=== PATIENT | female | born 1935 | race Caucasian/White ===

== ENCOUNTER 2017-02-10 07:57 | Day surgery (SDC) | payer MEDICARE ==
--- NOTE | 2017-02-10 08:19 | HP ---
HISTORY AND PHYSICAL: DATE OF ADMISSION: 02/10/17 [facility] CHIEF COMPLAINT: This is a 81-year-old female who was referred to us by Olive Mena to evaluate a possible right breast mass which is the chief complaint. HISTORY OF PRESENT ILLNESS: This is a 81-year-old female who was seen by Olive Mena on 01/23/17 because the patient noticed on her self-examination, a new lump or nodule in the upper quadrant of her right breast. Her prior history included routine breast exams on an annual basis and her last mammogram being in 2014, which was read as normal. The patient actually was seen in November for a breast exam. At that time, her exam was unremarkable but approximately 2-1/2 weeks prior to this appointment, which is 02/09/17, in November she had a negative exam and 3 weeks prior is when she noticed this change in her right breast and presented to Olive Mena. She confirmed a dominant area in the right breast in the 12 o'clock region and then went on to order a mammogram and ultrasound. The mammogram revealed a new 8 mm density in this region with calcifications, which was thought to be suspicious. They went on to do an ultrasound. This revealed a lobulated nodule in her right breast in the 12 o'clock region. This was felt to be hypo--echogenic mass, measured 10 x 14 x 12 mm. This was felt to be suspicious. For these reasons, she was then referred here to Dr. Milian's office for evaluation. Other significant history is her mother had breast cancer at the age of 59, had a mastectomy and then lived to the age of late 80's and from heart disease. The patient's other history is significant for having three full-term pregnancies. In 2011, she was found to have a cyst on one of her ovaries and underwent bilateral oophorectomy in 2011. After that date, she did use estrogen creams intermittently. She has not used any estrogen for the last 8 months. On our evaluation today on 02/09/17, the patient was found to have a thickening in the 12 o'clock region and a possible slight dimpling in that area. There is no tenderness associated with this. The area of thickening or dominant area is approximately 1 cm. The axilla on the right is found to be negative. The left breast is unremarkable, though left axilla is found to be negative. Ultrasound in our office was done. We measured this bilobular hypoechogenic mass to be 1 cm x 1.2 cm in height in one dimension, it could be as wide from 1 cm to 1.6 cm. There are no other findings on ultrasound. The patient was examined by Dr. Milian as well and her daughter, who is a nurse was present also for the appointment. It is our recommendation this is a solid mass and because of her age and some of the findings, it is somewhat suspicious, but this is not clear until a formal biopsy is obtained, so it is our recommendation to proceed with excisional biopsy of this right breast mass with the procedure to be done at [facility] using local MAC for sedation. There is some depth to it, so it was felt that she would do better if this was performed at [facility] for the comfort level and the anxiety. At this time the patient is scheduled for surgery for excisional biopsy of a suspicious right breast mass to be done by Dr. Milian. PAST MEDICAL HISTORY: Significant for hypertension, has a history of back pain. She had some bladder prolapse. PAST SURGICAL HISTORY: She had cryotherapy 16 years ago, had tonsillectomies and adenoidectomies as a child. Had the wisdom teeth extracted. She had oophorectomy in May 2012 for a benign right ovarian cyst. She had oral surgery , cataract surgery in [address] Hurd, assistive devices, she wears glasses and she also wears dentures. MEDICATIONS: She takes: 1. Ramipril 10 mg daily for her blood pressure. 2. She takes naltrexone 50 mg daily. She is not on estrogen, has been off that for the last 8 months. She does not take any aspirin products. ALLERGIES: She has a reaction to SULFA, where she has leg cramps, so she does not take that. Her primary physician is Dr. Cabrera. FAMILY HISTORY: Positive for her mother having breast cancer at the age of 59, underwent a mastectomy and then lived to an age of late 80s and is from heart disease. There is no other family history of breast cancer. SOCIAL HISTORY: She is . She has 3 children, 2 boys and a daughter, and her daughter is a nurse who is present with her today. She is an active woman. 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 She is a nonsmoker, previously did smoke 1 pack per day for 30 years. Rarely drinks alcohol. Drinks 4 cups of coffee a day. Exercises regularly. PHYSICAL EXAMINATION GENERAL: She is a 81-year-old female, looks younger than her stated age, appears in no distress. Alert and oriented. VITAL SIGNS: Today, she is 5 feet 5-/12 inches, weighs 163 pounds. Her blood pressure is 170/85. She is a little bit anxious. BMI is 26.7. Her pulse is 87 and regular. HEENT: Within normal limits. NECK: Supple. There is no JVD or carotid bruits. Her thyroid is felt to be normal. LUNGS: Clear throughout. There are no wheezes or rhonchi. HEART: Regular rhythm without a murmur heard. BREASTS EXAM: As mentioned previously, the right breast has a dominant thickening and a slight dimpling in the 12 o'clock region. This area of concern measures approximately 1 cm in the 12 o'clock region. The remaining breast exam on the right is unremarkable. The axilla on the right is negative. Left breast revealed normal exam. The axilla on the left is negative. ABDOMEN: Soft and nontender. There are no hernias noted. There are no masses or tenderness on exam. EXTREMITIES: Reveal full range of motion without limitation. NEUROLOGIC: She is nonfocal and grossly intact. IMPRESSION: Right breast mass in a 81-year-old female which was found approximately 3 weeks ago on her self-exam, confirmed as a dominant nodule on mammogram, as well as ultrasound. It is felt to be suspicious. PLAN: We would like to proceed with excisional biopsy with local MAC, so she has IV sedation to be done at [facility] tomorrow if possible on 02/10/17, so we can obtain tissue diagnosis for this right breast mass. JASON CARABALLO [id number]/[facility] #: [id number] MTDD
[2017-02-10] MEDS ORDERED: Famotidine IV* 10 MG/ML 2 ML (20 mg) ONE (08:20)
[2017-02-10] MEDS ORDERED: KETAMINE HCL* 50 MG/ML 10 ML VIAL ONE (08:28)
[2017-02-10] MEDS ORDERED: Midazolam* 1 MG/ML 5 ML VIAL (5 MG) ONE (08:28)
[2017-02-10] MEDS ORDERED: fentaNYL* 50 MCG/ML 2 ML VIAL (100 MCG VIAL) ONE (08:28)
[2017-02-10] MEDS ORDERED: HYDROmorphone INJ* 1 MG/ML CARPUJECT SYRINGE IV PRN (08:54)
[2017-02-10] MEDS ORDERED: oxyCODONE TAB* 5 MG TAB PO PRN (08:54)
[2017-02-10] MEDS ORDERED: DiMENhydriNATE IV* 50 MG/ML VIAL IV PUSH PRN (08:54)
[2017-02-10] MEDS ORDERED: Acetaminophen TAB* 325 MG PO PRN (08:54)
[2017-02-10] MEDS ORDERED: Bupivacaine 0.5% W/EPI SDV* 30 ML VIAL ONE (09:06)
[2017-02-10] MEDS ORDERED: Lidocaine 1% INJ* 10 MG/ML 30 ML SDV ONE (09:06)
[2017-02-10] MEDS ORDERED: Ketorolac INJ* 30 MG/ML 1 ML VIAL ONE (10:18)
[2017-02-10] MEDS ORDERED: Propofol* 10 MG/ML 20 ML BTL IV PUSH ONE (10:18)
[2017-02-10] MEDS ORDERED: Lidocaine 2% PF * 5 ML VIAL ONE (10:18)
[2017-02-10] MEDS ORDERED: Ondansetron INJ* 2 MG/ML VIAL ONE (10:18)
[2017-02-10 10:41] VITALS: BP 129/67
--- NOTE | 2017-02-11 00:26 | OP ---
DATE OF OPERATION: 02/10/[address] [facility] DATE OF : 39 SURGEON: Wisam Milian MD ARMORED CAR MESSENGER: Zohreh Waldrop NP ANESTHESIOLOGIST: Deepti Verdin MD ANESTHESIA: Local plus MAC. PRE-OP DIAGNOSIS: Right breast cancer. POST-OP DIAGNOSIS: Right breast cancer. OPERATIVE PROCEDURE: Excisional breast biopsy, right breast mass. ESTIMATED BLOOD LOSS: Approximately 20 cc. SPECIMEN: Breast mass with true margins. INDICATIONS: The patient is a 81-year-old female who examining herself found a palpable mass. For this reason, she came for an evaluation. On ultrasound, there was a 1.6 cm mass located at 12 o'clock of the right breast, highly suspicious for malignancy with skin dimpling. For this reason, the patient was scheduled for an excisional breast biopsy after discussing different options with the patient. DESCRIPTION OF PROCEDURE: The patient was taken to the procedure room. She underwent ultrasound marking of the breast mass. She was then prepped and draped in the usual sterile fashion and under sedation. Lidocaine 1% was used to infiltrate in the surrounding area of the periphery of the right breast at 12 o'clock. After a good level of anesthesia was obtained, a transverse incision was performed. This incision was carried down through the skin and subcutaneous tissue. Bleeders were controlled by electrocoagulation. After this was done, the mass was palpated, identified and held with Allis clamps and by using sharp dissection, the mass was removed entirely. At this point, the initial mass was then oriented and marked in its margins with sutures, short, superior, long lateral and then two blue sutures oriented towards the pectoralis muscle. After this was completed, we then proceeded to remove true margins from the superior, inferior, medial, and lateral margins and sent as a separate specimen. After this was done, hemostasis was accomplished and no bleeding was noted. More Marcaine was infiltrated in the surrounding area and after this was done, the incision was closed, first the subcutaneous tissue with 4-0 Vicryl and the skin was closed with a subcuticular 4-0 Prolene and Steri-Strips. A light pressure dressing was applied to the right breast. The patient tolerated the procedure well. She was then taken in good condition to the recovery room. [id number]/[facility] #: [id number] [facility]
== END 2017-02-10 11:05 | disposition home or self-care (01) ==
LOC: OREAST 07:57
PROVIDERS: ATTEND Surgery
PROC: 0HBT0ZX Excision of Right Breast, Open Approach, Diagnostic (ICD-10-PCS; principal; 2017-02-10 09:15)
DX: C50.911 Malignant neoplasm of unspecified site of right female breast (principal); I10 Essential (primary) hypertension; Z87.891 Personal history of nicotine dependence
CPT/HCPCS: 88307; 88341; 88342; J1885; J2250; J2405; J2704; J3010

== ENCOUNTER → 2017-02-28 06:36 | Day surgery (SDC) | payer MEDICARE ==
--- NOTE | 2017-02-20 08:32 | HP ---
HISTORY AND PHYSICAL: ADDENDUM TO PREVIOUS HISTORY DATED 02/10/17 DATE OF ADMISSION: 02/28/17 - [facility] The patient recently had [facility] on . The patient underwent a lumpectomy excision of breast biopsy in her right breast. 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 The grade of the tumor is 3/3. The margin are clear of tumor. 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 All of the results were discussed with the patient by Dr. Milian. Options for surgery were discussed with the patient as well. Those options included the lumpectomy that she has had presently followed by sentinel node biopsy and this option would most probably include radiation therapy for 6 weeks to follow. The other surgical option that was discussed with the patient is to do a mastectomy on the right breast as well as a sentinel node biopsy and this would include no recommendations for radiation. The patient will be 82 years old this June 2017. At this time, she wishes to have no further surgery with the right breast to agree with the treatment of the lumpectomy, which was done on 02/10/17 followed by sentinel node biopsy and radiation. At this time to further stage this tumor, we would like to schedule the patient for a sentinel node biopsy of the right axilla. If this sentinel node biopsy is positive, the patient knows that a formal axillary node dissection will be required of the right breast. At this time, we would like to schedule the surgery at [facility] for this patient with invasive ductal carcinoma of the right breast status post lumpectomy. Surgery will be done by Dr. Milian at [facility]. SHAUNA GUTIERREZ, JASON [id number]/[facility] #: [id number] [facility]
[~2017-02-28 06:36] MED LIST: Buffered Lidocaine 1% SYRIN* 3 ML/SYR SYRINGE INTRADERM ONE; Bupivacaine 0.5% W/EPI SDV* 30 ML VIAL ONE; Dexamethasone IV* 4 MG/ML 1 ML (4 MG) ONE; Famotidine IV* 10 MG/ML 2 ML (20 mg) IV ONE; Famotidine IV* 10 MG/ML 2 ML (20 mg) ONE; KETAMINE HCL* 50 MG/ML 10 ML VIAL ONE; Labetalol IV* 5 MG/ML 20 ML VIAL ONE; Lidocaine 1% INJ* 10 MG/ML 30 ML SDV ONE; Lidocaine 2% PF* 10 ML AMP ONE; Lidocaine 2% PF* 5 ML VIAL ONE; Lidocaine 2.5%/Prilocain 2.5%* 5 GM TUBE ONE; Midazolam* 1 MG/ML 5 ML VIAL (5 MG) ONE; Morphine INJ* 2 MG/ML 1 ML SYRINGE IV PRN; Ondansetron INJ* 2 MG/ML VIAL ONE; PROCHLORPERAZINE INJ 5 MG/ML 2 ML VIAL IV PRN; Propofol* 10 MG/ML 20 ML BTL IV PUSH ONE; ceFAZolin 2 GM PREMIX(*) 2 GM/50 ML BAG IVPB ONE; fentaNYL* 50 MCG/ML 2 ML VIAL (100 MCG VIAL) IV PRN; fentaNYL* 50 MCG/ML 2 ML VIAL (100 MCG VIAL) ONE; hydrALAZINE IV* 20 MG/ML VIAL ONE; oxyCODONE/Acetamin 5/325 MG* TAB ONE
--- NOTE | 2017-02-28 10:40 | RAD ---
INDICATION: Right breast carcinoma. Excision 2 weeks ago COMPARISON: Mammogram and sonogram January 26, 2017 TECHNIQUE: Informed consent was obtained. A routine timeout procedure was called. The right breast was prepped in usual fashion and a total of 0.31 mCi technetium 99m sulfur colloid was injected intradermally in the periareolar region in 4 divided doses. Imaging the chest was then performed. FINDINGS: The sentinel node was promptly identified and marked on the skin surface. The node was in the axilla. Images were sent with the patient to the surgical holding area. IMPRESSION: SENTINEL NODE IMAGING WAS PERFORMED.
[2017-02-28] MEDS: oxyCODONE/Acetamin 5/325 MG* TAB PO PRN ×2 (13:57→14:41)
[2017-02-28 15:12] VITALS: BP 145/72
--- NOTE | 2017-03-01 02:56 | OP ---
DATE OF OPERATION: 02/28/17 [facility] DATE OF : 39 SURGEON: Wisam Milian MD ANESTHESIOLOGIST: Zhang Hadley MD ANESTHESIA: Local plus MAC. PRE-OP DIAGNOSIS: Invasive adenocarcinoma of the right breast. POST-OP DIAGNOSIS: Invasive adenocarcinoma of the right breast. OPERATIVE PROCEDURE: Right axillary sentinel lymph node biopsy. ESTIMATED BLOOD LOSS: Less than 20 cc. SPECIMEN: Merino lymph node. DESCRIPTION OF PROCEDURE: The patient had undergone nuclear medicine local excision of sentinel lymph node and the sentinel lymph node area was marked prior to this surgery. The patient was then taken to the operating room. She was placed in the supine position. She received preoperative antibiotics. She was prepped and draped in the usual sterile fashion and after proper identification of the patient and surgical site and time-out, the marked area by the x-ray department was then infiltrated with lidocaine 1%. It was also confirmed using the navigator, the area that was previously marked. After this was done, a transverse incision at the base of the axilla was done. The incision was carried down through skin and subcutaneous tissue. Dissection was carried around until the lymph node was identified. It was a small to hard lymph node with a high Frank count. This was dissected off, clipped the proximally and distally with the fatty tissue in the surrounding area and removed outside the axillary cavity, the Montross count was over 20 and the area where it was located did not increase in activity. It was felt that this was successfully located and the area was checked for other lymph nodes visually and by palpation. No other lymph nodes were noted. The area was then checked for hemostasis. Minor oozing was controlled with the electrocautery and after this was done, the incision was closed by closing the subcutaneous tissue with 4 -0 Vicryl and the skin with subcuticular 4-0 Prolene suture and Steri-Strips. A light dressing was applied to the axillary incision. The patient tolerated the procedure well and she was taken in good conditions to recovery room. [id number]/[facility] #: [id number] [facility]
== END | disposition home or self-care (01) ==
LOC: SDS 06:36
PROVIDERS: ATTEND Surgery
DX: C50.911 Malignant neoplasm of unspecified site of right female breast (principal); I10 Essential (primary) hypertension
CPT/HCPCS: 78195; 88307; 88342; A9270-GY; A9541; C1776; J0360; J0690; J1100; J2001; J2250; J2405; J2704; J3010

== ENCOUNTER 2018-10-18 07:07 | Inpatient (IN) | payer MEDICARE ==
--- NOTE | 2018-10-08 19:30 | HP ---
HISTORY AND PHYSICAL: DATE OF ADMISSION/SURGERY: 10/18/18 DATE OF OFFICE VISIT: 10/08/18 PRIMARY CARE PHYSICIAN: Dr. Cabrera. SURGEON: Kaela Foss MD * (DICTATED BY JASON PAIGE) PROCEDURE: Left total knee arthroplasty. CHIEF COMPLAINT: Left knee pain. HISTORY OF PRESENT ILLNESS: Ms. Sigala is an 83-year-old female with end- stage osteoarthritis of the left knee. She has failed conservative treatment and elected to proceed with surgery. PAST MEDICAL HISTORY: Hypertension and breast cancer. PAST SURGICAL HISTORY: Lumpectomy, cataract removal, and oophorectomy. CURRENT MEDICATIONS: Ramipril 10 mg daily. ALLERGIES: None. FAMILY HISTORY: Cancer and coronary artery disease. SOCIAL HISTORY: She is an 83-year-old female. She lives alone. She does not smoke or use drugs. Uses occasional alcohol. REVIEW OF SYSTEMS: A complete 14-point review of systems was reviewed with the patient. It was all negative or noncontributory. She denies history of DVT, PE , hepatitis, HIV, or anesthesia problems. PHYSICAL EXAMINATION GENERAL: She is well developed, well nourished, in no acute distress. VITAL SIGNS: She stands 5 feet 5 inches tall, weighs 158 pounds. Her blood pressure is 138/82 and heart rate is 80. HEENT: Normocephalic, atraumatic. NECK: Supple. No palpable lymph nodes. PULMONARY: The lungs are clear to auscultation bilaterally. CARDIO: Regular rate and rhythm. Strong S1, S2. ABDOMEN: Soft, nontender, and nondistended. NEUROLOGICAL: She is alert and oriented x3. MUSCULOSKELETAL: Left lower extremity: The skin is intact. There are no open wounds or abrasions. There is a moderate joint effusion. She has some tenderness over the medial and lateral joint line. Range of motion is 5 to 125 degrees of flexion. There is a 12-degree valgus deformity of the knee. She has a 2+ dorsalis pedis pulse and intact sensation. Her lower extremity muscle group strengths are intact at 5/5. ASSESSMENT AND PLAN: Ms. Sigala is an 83-year-old female with end-stage osteoarthritis of the left knee. She has failed conservative treatment and elected to proceed with a left total knee arthroplasty. The surgery is scheduled for 10/18/[address] Foss discussed the risks and benefits of the surgery at today's visit and all of her questions were answered. She will follow up with Dr. Foss 2 weeks after the surgery. JASON PAIGE [id number]/[facility] #: [id number] ADITI
[~2018-10-18 07:07] MED LIST changes: +Buffered Lidocaine 0.9% SYRIN* 5 ML/SYR SYRINGE INTRADERM ONE; -Buffered Lidocaine 1% SYRIN* 3 ML/SYR SYRINGE INTRADERM ONE; -Bupivacaine 0.5% W/EPI SDV* 30 ML VIAL ONE; +Dexamethasone IV* 4 MG/ML 1 ML (4 MG) IV SLOW PU ONE; -Dexamethasone IV* 4 MG/ML 1 ML (4 MG) ONE; -Famotidine IV* 10 MG/ML 2 ML (20 mg) ONE; +Gabapentin CAP(*) 300 MG PO ONE; -KETAMINE HCL* 50 MG/ML 10 ML VIAL ONE; -Labetalol IV* 5 MG/ML 20 ML VIAL ONE; -Lidocaine 1% INJ* 10 MG/ML 30 ML SDV ONE; -Lidocaine 2% PF* 10 ML AMP ONE; -Lidocaine 2% PF* 5 ML VIAL ONE; -Lidocaine 2.5%/Prilocain 2.5%* 5 GM TUBE ONE; -Midazolam* 1 MG/ML 5 ML VIAL (5 MG) ONE; -Morphine INJ* 2 MG/ML 1 ML SYRINGE IV PRN; -Ondansetron INJ* 2 MG/ML VIAL ONE; -PROCHLORPERAZINE INJ 5 MG/ML 2 ML VIAL IV PRN; -Propofol* 10 MG/ML 20 ML BTL IV PUSH ONE; -ceFAZolin 2 GM PREMIX(*) 2 GM/50 ML BAG IVPB ONE; +celeCOXIB CAP* 100 MG PO ONE; +celeCOXIB CAP* 200 MG PO ONE; -fentaNYL* 50 MCG/ML 2 ML VIAL (100 MCG VIAL) IV PRN; -fentaNYL* 50 MCG/ML 2 ML VIAL (100 MCG VIAL) ONE; -hydrALAZINE IV* 20 MG/ML VIAL ONE; -oxyCODONE/Acetamin 5/325 MG* TAB ONE
--- OUTSIDE RECORDS SUMMARY | 2018-10-18 07:11 | XMS REPORT ---
:1935 External Reference #:[id number] Author Organization [employer] Address [address] [place] [address] [place] [address] Phone [phone] Care Team Providers Name Role Phone Brad Cabrera MD Primary Care Physician Unavailable Payers Type Date Identification Numbers Payment Provider Subscriber Health Maintenance Policy Number: [facility] Precious Sigala [facility] (O) [id number] Ppo/Epo PayID: [id number] [address] [place] [address] Problems Date Description Provider Status Onset: 12/28/2016 Localized, primary osteoarthritis Kaela Foss M.D. Active Onset: 04/30/2018 Acquired genu valgum Kaela Foss M.D. 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 ETOH Use Drinks 2 Alcoholic Beverages Per Week Smoking Patient is a former smoker Exercise Type/Frequency Exercises regularly Allergies, Adverse Reactions, Alerts Date Description Reaction Status Severity Comments 07/26/2017 NKDA active Medications Medication Date Status Form Strength Qnty SIG Indications Ordering Provider Ramipril Active Capsules 10mg 1 by Unknown 00 mouth every day Naltrexone HCL Hx Tablets 50mg Unknown - 03/23/20 17 Medications Administered in Office Medication Date Status Form Strength Qnty SIG Indications Ordering Provider Depomedrol Administered Injection Kaela 40MG Jp Foss M.D. Depomedrol Administered Injection Kaela 40MG Jp Foss M.D. Depomedrol Administered Injection Kaela 40MG 018 Dany Foss Depomedrol Administered Injection Kaela 40MG 017 Dany Foss Depomedrol Administered Injection Kaela 40MG Cr Foss M.D. Depomedrol Administered Injection Kaela 40MG 017 Dany Foss Depomedrol Administered Injection Kaela 40MG Cr Foss M.D. Vital Signs Date Vital Result Comment 08/06/2018 Height 65.5 inches 5'5.50" Weight 166.00 lb Heart Rate 68 /min BP Systolic 126 mmHg BP Diastolic 80 mmHg BMI (Body Mass Index) 27.2 kg/m2 04/30/2018 Height 55.5 inches 4'7.50" Weight 162.00 lb BP Systolic 138 mmHg BP Diastolic 72 mmHg Body Temperature 98.0 F BMI (Body Mass Index) 37.0 kg/m2 01/29/2018 Height 65.5 inches 5'5.50" Weight 163.00 lb BP Systolic 150 mmHg BP Diastolic 78 mmHg Body Temperature 97.4 F Pain Level 3 BMI (Body Mass Index) 26.7 kg/m2 10/25/2017 Height 65.5 inches 5'5.50" Weight 162.00 lb BP Systolic 130 mmHg BP Diastolic 70 mmHg Body Temperature 97.7 F BMI (Body Mass Index) 26.5 kg/m2 07/26/2017 Height 65 inches 5'5" Weight 164.00 lb Heart Rate 90 /min BP Systolic 125 mmHg BP Diastolic 84 mmHg BMI (Body Mass Index) 27.3 kg/m2 03/24/2017 Height 65.5 inches 5'5.50" Weight 164.00 lb Heart Rate 76 /min BP Systolic 124 mmHg BP Diastolic 70 mmHg Respiratory Rate 16 /min BMI (Body Mass Index) 26.9 kg/m2 01/16/2017 Height 65.5 inches 5'5.50" Weight 164.00 lb Heart Rate 76 /min BP Systolic 155 mmHg BP Diastolic 81 mmHg Pain Level 3 BMI (Body Mass Index) 26.9 kg/m2 12/28/2016 Height 65.5 inches 5'5.50" Weight 163.00 lb Heart Rate 75 /min BP Systolic 173 mmHg BP Diastolic 92 mmHg BMI (Body Mass Index) 26.7 kg/m2 Results Description No Information Procedures Date CPT Code Description Status 08/06/2018 Inject/Drain Joint/Bursa Major W/O US Completed 04/30/2018 Inject/Drain Joint/Bursa Major W/O US Completed 02/09/2018 Mammogram Completed 01/29/2018 Inject/Drain Joint/Bursa Major W/O US Completed 11/16/2017 Bone Mineral Density Test Completed 10/25/2017 Inject/Drain Joint/Bursa Major W/O US Completed 07/26/2017 Inject/Drain Joint/Bursa Major W/O US Completed 03/24/2017 Inject/Drain Joint/Bursa Major W/O US Completed 12/28/2016 Inject/Drain Joint/Bursa Major W/O US Completed 06/04/2012 [id number] EKG, Interpretation Only Completed Encounters Type Date Location Provider CPT E/M Dx Office Visit 08/06/2018 [facility] M.D. [id number] M17.12 8:[facility]a [facility] M21.062 M25.562 Office Visit 01/16/2017 8:15a [facility] M.D[facility] [id number] M25.562 [facility] M17.12 Office Visit 12/28/2016 9:30a [facility] M[facility] [id number] M25.562 [facility] M17.12 Plan of Care Future Appointment(s):10/18/2018 1:30 pm - DOMINGA Pittman at [facility]10/18/2018 1:30 pm - JASON Crooks at [facility]10/18/2018 1:30 pm - Kaela Foss M.D. at [facility]10/05/2018 8:30 am - Kaela Foss M.D. at [facility]08/06/2018 - Kaela Foss M.D.M17.12 Unilateral primary osteoarthritis, left kneeFollow up:Follow up: 7-10 days before [id number] Valgus deformity, not elsewhere classified, left kneeM25.562 Pain in left knee
--- OUTSIDE RECORDS SUMMARY | 2018-10-18 07:11 | XMS REPORT | Continuity of Care Document ---
:1935 External Reference #:[id number] Author Name JacquelineFrank alejo Care Team Providers Name Role Phone Brad Cabrera MD Primary Care Physician Unavailable Payers Type Date Identification Numbers Payment Provider Subscriber Policy Number: [id number] [facility] Health Ins Ppo/Epo Precious Sigala PayID: [id number] [address] [place] [address] Advance Directives Description No Information Available Problems Date Description Provider Status Onset: 12/28/2016 Localized, primary osteoarthritis Kaela Foss M.D. Active Onset: 04/30/2018 Acquired genu valgum Kaela Foss M.D. 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 ETOH Use Drinks 2 Alcoholic Beverages Per Week Tobacco Use Start: Unknown End: Patient is a former Unknown smoker Smoking Status Reviewed: 10/08/18 Patient is a former smoker Exercise Exercises regularly Type/Frequency Allergies, Adverse Reactions, Alerts Description No Known Drug Allergies Medications Medication Date Status Form Strength Qnty SIG Indications Ordering Provider Ramipril Active Capsules 10mg 1 by Unknown 00 mouth every day Naltrexone HCL Hx Tablets 50mg Unknown - 03/23/20 17 Medications Administered in Office Medication Date Status Form Strength Qnty SIG Indications Ordering Provider Depomedrol Administered Injection Kaela 40MG 018 Dany Foss Depomedrol Administered Injection Kaela 40MG 018 Dany Foss Depomedrol Administered Injection Kaela 40MG 018 Dany Foss Depomedrol Administered Injection Kaela 40MG 017 Dany Foss Depomedrol Administered Injection Kaela 40MG 017 Dany Foss Depomedrol Administered Injection Kaela 40MG 017 Dany Foss Depomedrol Administered Injection Kaela 40MG 017 Dany Foss Immunizations Description No Information Available Vital Signs Date Vital Result Comment 10/08/2018 7:57am Height 65.5 inches 5'5.50" Weight 158.00 lb Heart Rate 80 /min BP Systolic 138 mmHg BP Diastolic 82 mmHg BMI (Body Mass Index) 25.9 kg/m2 08/06/2018 8:05am Height 65.5 inches 5'5.50" Weight 166.00 lb Heart Rate 68 /min BP Systolic 126 mmHg BP Diastolic 80 mmHg BMI (Body Mass Index) 27.2 kg/m2 04/30/2018 8:00am Height 55.5 inches 4'7.50" Weight 162.00 lb BP Systolic 138 mmHg BP Diastolic 72 mmHg Body Temperature 98.0 F BMI (Body Mass Index) 37.0 kg/m2 01/29/2018 8:05am Height 65.5 inches 5'5.50" Weight 163.00 lb BP Systolic 150 mmHg BP Diastolic 78 mmHg Body Temperature 97.4 F Pain Level 3 BMI (Body Mass Index) 26.7 kg/m2 10/25/2017 7:59am Height 65.5 inches 5'5.50" Weight 162.00 lb BP Systolic 130 mmHg BP Diastolic 70 mmHg Body Temperature 97.7 F BMI (Body Mass Index) 26.5 kg/m2 07/26/2017 7:59am Height 65 inches 5'5" Weight 164.00 lb Heart Rate 90 /min BP Systolic 125 mmHg BP Diastolic 84 mmHg BMI (Body Mass Index) 27.3 kg/m2 03/24/2017 8:02am Height 65.5 inches 5'5.50" Weight 164.00 lb Heart Rate 76 /min BP Systolic 124 mmHg BP Diastolic 70 mmHg Respiratory Rate 16 /min BMI (Body Mass Index) 26.9 kg/m2 01/16/2017 8:15am Height 65.5 inches 5'5.50" Weight 164.00 lb Heart Rate 76 /min BP Systolic 155 mmHg BP Diastolic 81 mmHg Pain Level 3 BMI (Body Mass Index) 26.9 kg/m2 12/28/2016 9:39am Height 65.5 inches 5'5.50" Weight 163.00 lb Heart Rate 75 /min BP Systolic 173 mmHg BP Diastolic 92 mmHg BMI (Body Mass Index) 26.7 kg/m2 Results Description No Information Available Procedures Date Code Description Status 08/06/201837125 Inject/Drain Joint/Bursa Major W/O US Completed 04/30/2018 Inject/Drain Joint/Bursa Major W/O US Completed 02/09/2018 08483946 Mammogram Completed 01/29/2018 Inject/Drain Joint/Bursa Major W/O US Completed 11/16/2017 414006802 Bone Mineral Density Test Completed 10/25/2017 Inject/Drain Joint/Bursa Major W/O US Completed 07/26/2017 Inject/Drain Joint/Bursa Major W/O US Completed 03/24/2017 Inject/Drain Joint/Bursa Major W/O US Completed 12/28/201626423 Inject/Drain Joint/Bursa Major W/O US Completed 06/04/2012 64628 EKG, Interpretation Only Completed Encounters Type Date Location Provider Dx Diagnosis Office Visit 08/06/2018 [facility] K[facility]a Foss, M17.12 Unilateral primary 8:00[facility] osteoarthritis, left knee M21.062 Valgus deformity, not elsewhere classified, left knee M25.562 Pain in left knee Office Visit 01/16/2017 8:15a [facility] Kaela Foss M25.562 Pain in left Of Kyle.Eliceo SarahDCha knee M17.12 Unilateral primary osteoarthritis, left knee Office Visit 12/28/2016 9:30a [facility] Kaela Foss M25.562 Pain in left Of C.M.Perez MChaD. knee M17.12 Unilateral primary osteoarthritis, left knee Plan of Treatment Future Appointment(s):10/31/2018 8:45 am - Kaela Foss M.D. at [facility]10/18/2018 1:30 pm - DOMINGA Pittman at [facility]10/18/2018 1:30 pm - JASON Crooks at [facility]10/18/2018 1:30 pm - Kaela Foss M.D. at [facility]10/08/2018 - Kaela Foss M.D.M21.062 Valgus deformity, not elsewhere classified, left kneeFollow up:Follow up: 2 weeks after ptnaqafY36.562 Pain in left kneeM17.12 Unilateral primary osteoarthritis, left knee
[2018-10-18] MEDS ORDERED: Dexamethasone IV* 4 MG/ML 1 ML (4 MG) ONE (07:52)
[2018-10-18] MEDS ORDERED: Famotidine IV* 10 MG/ML 2 ML (20 mg) ONE (07:53)
[2018-10-18] MEDS ORDERED: Gabapentin CAP(*) 300 MG ONE (07:53)
[2018-10-18] MEDS ORDERED: celeCOXIB CAP* 100 MG ONE (07:53)
[2018-10-18] MEDS ORDERED: ceFAZolin 2 GM PREMIX in ORs 2 GM/50 ML BAG IVPB ONE (07:58)
[2018-10-18] MEDS ORDERED: Midazolam* 1 MG/ML 2 ML VIAL (2 MG) ONE (08:01)
[2018-10-18] MEDS ORDERED: fentaNYL* 50 MCG/ML 2 ML VIAL (100 MCG VIAL) ONE ×3 (08:01→12:14)
[2018-10-18] MEDS ORDERED: Lidocaine 2% PF * 5 ML VIAL ONE (08:19)
[2018-10-18] MEDS ORDERED: ROPIVACAINE 5 MG/ML 30 ML BTL (0.5%) ONE (08:19)
[2018-10-18] MEDS ORDERED: Phenylephrine INJ* 10 MG/ML 1 ML VIAL (10 MG) ONE (09:56)
[2018-10-18] MEDS ORDERED: Tranexamic Acid 1,000 MG in NS 0.9% 50 ML IV ONE (10:00)
[2018-10-18] MEDS ORDERED: Labetalol IV* 5 MG/ML 20 ML VIAL ONE (10:05)
[2018-10-18] MEDS ORDERED: Bupivacaine 0.5% PF 10 ML VIAL INJ ONE (10:21)
[2018-10-18] MEDS ORDERED: DiMENhydriNATE IV* 50 MG/ML VIAL IV PUSH PRN (10:24)
[2018-10-18] MEDS ORDERED: Naloxone* 0.4 MG/ML 1 ML VIAL IV PRN (10:24)
[2018-10-18] MEDS ORDERED: HYDROmorphone INJ1* 1 MG/ML SYRINGE ONE ×2 (10:37→12:29)
[2018-10-18] MEDS ORDERED: oxyCODONE/Acetamin 5/325 MG* TAB PO PRN (11:46)
[2018-10-18] MEDS ORDERED: Magnesium Hydroxide LIQ* 30 ML UDC PO PRN (11:46)
[2018-10-18] MEDS ORDERED: diPHENhydraMINE IV* 50 MG/ML 1 ml VIAL (BENADRYL) IV PRN (11:51)
[2018-10-18] MEDS ORDERED: Ondansetron INJ* 2 MG/ML VIAL IV PRN (11:51)
[2018-10-18] MEDS ORDERED: Polyethylene Glycol 3350* 17 GM PACKET PO PRN (11:51)
[2018-10-18] MEDS ORDERED: Morphine VIAL* 4 MG/ML VIAL (1 ml vial) IV PRN (11:51)
[2018-10-18] MEDS ORDERED: diPHENhydraMINE PO* 25 MG PO PRN (11:51)
[2018-10-18] MEDS ORDERED: Bisacodyl SUPP* 10 MG SUPP PR PRN (11:51)
[2018-10-18] MEDS ORDERED: Acetaminophen IV 1GM/100ML * 1,000 MG/100 ML VIAL IVPB ONE (11:53)
[2018-10-18] MEDS ORDERED: Acetaminophen IV 1GM/100ML * 100 ML ONE (11:58)
[2018-10-18] MEDS ORDERED: Enoxaparin(*) 40 MG/0.4 ML SYR SUBCUT SCH (12:00)
[2018-10-18] MEDS ORDERED: Acetaminophen TAB* 325 MG PO SCH (12:00)
[2018-10-18] MEDS: fentaNYL* 50 MCG/ML 2 ML VIAL (100 MCG VIAL) IV PRN ×4 (12:07→12:36)
[2018-10-18] MEDS: HYDROmorphone INJ1* 1 MG/ML SYRINGE IV PRN ×5 (12:30→14:08)
[2018-10-18] MEDS ORDERED: hydrALAZINE IV* 20 MG/ML VIAL ONE ×2 (13:08→13:54)
[2018-10-18] MEDS: oxyCODONE/Acetamin 5/325 MG* TAB PO PRN ×2 (14:57→19:18)
--- NOTE | 2018-10-18 16:09 | PN ---
Progress Note - Progress Note Date of Service: 10/18/18 Note: Patient seen sitting OOB in chair, feeling well, denies SOB, CP, dizziness s/p LTK this am Pain well controlled +DF left ankle sensation intact distally 2+ pedal pulse
[2018-10-18] MEDS: ceFAZolin 1 GM in Dextrose (*) 1 GM/50 ML BAG IVPB SCH (16:26)
[2018-10-18] MEDS ORDERED: Warfarin TAB(*) 6 MG PO ONE (17:00)
--- NOTE | 2018-10-18 19:21 | CONS ---
CONSULTATION REPORT: DATE OF CONSULT: 10/18/18 TIME OF CONSULTATION: 1:45 p.m. CONSULTING PHYSICIAN: Dr. Foss. REASON FOR CONSULT: Hypertension. CHIEF COMPLAINT: Elective left total knee arthroplasty. HISTORY OF PRESENT ILLNESS: This is an 83-year-old female with history of hypertension and breast cancer, who presented to the hospital today for an elective left TKA with Dr. Foss after failing conservative measures for osteoarthritis. We were consulted for hypertension. Ms. Sigala is seen in PACU with her daughter and she is complaining of some pain in her left knee. She describes the pain as 4/10 and she is noted to be hypertensive at this time. Her current blood pressure recording is 184/93 and I note that Anesthesia has just ordered 5 mg of IV hydralazine for her which the nurse is giving while I am talking with her. Ms. Sigala reports that her blood pressure has been quite well controlled at Dr. Cabrera's office recently and she is only on ramipril 10 mg which she takes in the evening. She has not required any other antihypertensives and she has followed closely with her primary care physician for her hypertension. She does not feel anxious, does not have any other complaints besides the 4/10 knee pain. PAST MEDICAL HISTORY: 1. History of breast cancer, which is currently in remission. She underwent chemotherapy and radiation with Dr. Moore. 2. Hypertension. PAST SURGICAL HISTORY: She had an oophorectomy for benign reasons. There was no malignancy. SOCIAL HISTORY: She does not smoke cigarettes. She drinks 1 alcoholic beverage approximately 3 times per week. Her healthcare proxy is her sister, Monica. REVIEW OF SYSTEMS: As per the HPI. Remainder of 14-point review of systems is negative. PHYSICAL EXAM: Temperature 96.8, heart rate 67, respiratory rate 14, pulse ox 99% on room air, and blood pressure 184/93. General: Alert well-appearing female, in no distress. She is a little sleepy postop, but easily conversational and pleasant. HEENT: Pupils are 1 mm bilaterally. Oral mucosa is dry. No pharyngeal exudates or erythema. Neck: No JVP. No cervical adenopathy. Chest: Regular rate and rhythm. No murmurs. Lungs are clear bilaterally anteriorly. Abdomen is soft, nontender, nondistended. No guarding or rebound. Extremities: The left knee is dressed. Her DP pulses are 2+ bilaterally and sensation is intact. ASSESSMENT AND PLAN: This is an 83-year-old female with history of hypertension ; breast cancer, in remission; and end-stage osteoarthritis, who underwent an elective left TKA today, who we are consulted for hypertension. 1. Hypertension. Her blood pressure is not at goal at this time. She does admit that she did not take her ramipril last night. This in combination with being in pain may be contributing to her blood pressure at this time. Anesthesia has ordered IV hydralazine for her, which may give her some short- term control; however, I am going to give her her ramipril early today. We will allow the hydralazine to kick in and if her blood pressure is still elevated, I will plan to give her her ramipril when she gets to the floor. 2. Remote history of breast cancer. She follows with Dr. Moore and she will continue to get her screening mammogram. 3. Postop day #0 left total knee amputation. She has been started on warfarin for DVT prophylaxis by Orthopedics and her pain management has all been ordered as well. Thank you for allowing us to participate in the care of this patient. We will follow her blood pressure along with you. [id number]/[facility] #: [id number] ADITI
[2018-10-18] MEDS: Ramipril CAP* 10 MG PO SCH (20:36)
[2018-10-18] MEDS: Docusate CAP* 100 MG PO SCH (20:37)
[2018-10-18] MEDS: Magnesium Hydroxide LIQ* 30 ML UDC PO SCH (20:38)
[2018-10-18] MEDS: oxyCODONE TAB* 5 MG TAB PO PRN (22:38)
[2018-10-18] MEDS: Acetaminophen TAB* 325 MG PO SCH (22:39)
[2018-10-18] MEDS: Cyclobenzaprine TAB* 10 MG PO PRN (22:40)
[2018-10-19] MEDS: ceFAZolin 1 GM in Dextrose (*) 1 GM/50 ML BAG IVPB SCH ×2 (00:39→07:34)
[2018-10-19] MEDS: oxyCODONE/Acetamin 5/325 MG* TAB PO PRN ×4 (00:42→20:21)
[2018-10-19 05:35] LABS: Hematocrit 33 % (35-47); Hemoglobin 11.4 g/dl (12.0-16.0); Platelet Count 216 10^3/ul (150-450)
[2018-10-19 05:41] LABS: INR 0.9 (0.77-1.02)
[2018-10-19] MEDS: Acetaminophen TAB* 325 MG PO SCH ×3 (05:45→20:51)
[2018-10-19 05:52] LABS: EGFR Non-African American 67.9 (>60)
[2018-10-19] MEDS: oxyCODONE TAB* 5 MG TAB PO PRN ×4 (07:34→22:33)
--- NOTE | 2018-10-19 08:16 | OP ---
DATE OF OPERATION: 10/18/18 - ROOM #338 DATE OF : 39 SURGEON: Kaela Foss MD CLAY MODELER: JASON Pittman. Ms. Campo did help throughout the procedure with preparation of the leg, wound retraction, manipulation of the knee, and wound closure. ANESTHESIOLOGIST: Dr. Scales. ANESTHESIA: Spinal. PRE-OP DIAGNOSIS: Severe end-stage degenerative osteoarthritis of the left knee joint. POST-OP DIAGNOSIS: Severe end-stage degenerative osteoarthritis of the left knee joint. OPERATIVE PROCEDURE: Left total knee arthroplasty. INDICATIONS: Ms. Sigala is an 83-year-old female with years of increasingly severe left knee pain and valgus deformity with advanced degenerative osteoarthritis. She failed conservative treatment with antiinflammatories, pain medication, intraarticular injections, and physical therapy. Due to continued pain and decreased quality of life, she elected to undergo left total knee arthroplasty. Informed consent was obtained from the patient. She understood the risks of surgery included, but were not limited to, bleeding, infection, damage to nearby structures, continued pain, need for further surgery , intraoperative fracture, nerve palsy, hardware failure or loosening, knee stiffness, loss of motion, stroke, heart attack, blood clot, and . She wished to proceed. COMPLICATIONS: None. TOURNIQUET TIME: 44 minutes. SPECIMENS: Bone and cartilage from the left knee joint sent to Pathology. HARDWARE USED: This is cemented total knee arthroplasty hardware from [employer]. For the cement, 2 packages of Simplex bone cement. For the femur, a size 5 left posterior stabilized Legion Narrow femoral component. For the tibia, a size 3, left tibial blase plate, Sherrill II. For the insert, a 9-mm constrained articular insert, size 3-4, and for the patella, a 32-mm 3 peg all poly patella. INTRAOPERATIVE FINDINGS: Intraoperatively, the patient was noted to have valgus deformity of 10 degrees and flexion contracture of 10 degrees as well. She had some significant laxity of the MCL. She had significant osteopenia noted. Complete loss of cartilage in all 3 compartments but worst in the lateral and patellofemoral compartments. DESCRIPTION OF PROCEDURE: Ms. Sigala was identified in the preanesthesia unit. Her left lower extremity was marked as the correct operative side. Informed consent was signed and placed in the chart. The patient was taken to the operating room and placed under spinal anesthesia. A Soto catheter was placed. Tourniquet was placed on the left thigh. Left lower extremity was prepped and draped in the usual sterile fashion. Preop time-out was made to correctly identify the patient's side and site. Appropriate perioperative antibiotics were given within 1 hour of incision. total tourniquet time for this procedure was 44 minutes. A midline incision was made with a 10 blade and carried down to the extensor mechanism. A new 10 blade was used to make a standard medial parapatellar arthrotomy. The patella was subluxed laterally. Electrocautery was used to subperiosteally elevate soft tissue off the superomedial tibia to the mid sagittal plane. ____ _ MCL was noted to have some laxity but was intact. The knee was flexed up. The anterior horn of the lateral meniscus and ACL were sharply released. A drill was used to enter the distal femur. Intramedullary distal femoral cutting guide was pinned on the distal femur. Oscillating saw was used to make the distal femoral cut. Lateral femoral condylar hypoplasia was noted and accounted for. Next, the external rotation guide was pinned on the distal femur. Distal femur was sized to a size 5. A size 5 multi-cutting jig was pinned on the distal femur. Oscillating saw was used to make the appropriate 4 chamfer cuts. The PCL was completely released and the tibia was subluxed anteriorly. Extramedullary tibial cutting guide was pinned on the proximal tibia. The oscillating saw was used to make the proximal tibial cut perpendicular to the mechanical axis of the tibia. The bone was carefully removed. The knee was brought out into full extension. Spacer block had good fit with the knee in full extension. The medial and lateral ligaments were well balanced. Once again, the MCL chronic laxity noted. Flexion and extension gaps were well balanced. The knee was flexed up. Lamina canvas baster jumpbasting was placed both medially and laterally. Any remaining meniscus was carefully removed using electrocautery. Curved osteotome was used to remove any posterior osteophytes. Tibial tray and drop roxanna were placed and once again confirmed a satisfactory tibial cut and this was confirmed. A left Narrow size 5 femoral trial was impacted on to the distal femur and had excellent fit and stability. The box for the posterior stabilized implant was prepared using a reamer and box cut osteotome. A trial size 3 tibial tray with a 9- mm insert trial was placed and the knee was taken through a range of motion and had full extension to 130 degrees of flexion with satisfactory patellofemoral tracking. The patella was everted. 9 mm of patellar bone and cartilage were carefully removed using an oscillating saw. The patella was sized to a size 32. Three peg holes were drilled through the size 32 guide. 32 patella was placed and the knee was taken through a range of motion. There was satisfactory patellofemoral tracking. All trials were carefully removed. The tibia was subluxed anteriorly and sized to a size 3. Proximal tibia was prepared using a size 3 keel punch. All bony cut surfaces were copiously irrigated with sterile saline and dried. Final implants were cemented into place starting with the tibia, followed by the femur and lastly the patella. 9-mm insert trial was placed and the knee was brought out into full extension. The knee was copiously irrigated with sterile saline. Electrocautery was used to obtain meticulous hemostasis. Once the cement had fully cured, the insert trial was removed. Any excess cement was removed from around the capsule and hardware. Final insert chosen was a 9-mm constrained articular insert size 3-4. This was locked into position on the tibial tray without difficulty. Stability of the insert was checked and rechecked and noted to be stable. The knee was once again copiously irrigated with sterile saline. The extensor mechanism was closed using interrupted #1 Vicryls. The rest of the incision was closed in a layered fashion using 0 and 2-0 Vicryls. Skin was closed using running 3-0 nylon suture. Sterile Xeroform, 4x4s, and Webril were used to cover the incision. Medhat wrap and cold pack were placed over this. The patient' s anesthesia was reversed without difficulty. She was taken to the PACU in stable condition. Intended weightbearing will be weightbearing as tolerated. Intended DVT prophylaxis will be Coumadin with a Lovenox bridge. [id number]/[facility] #: [id number] [facility]
[2018-10-19] MEDS: Magnesium Hydroxide LIQ* 30 ML UDC PO SCH ×2 (09:23→20:21)
[2018-10-19] MEDS: Docusate CAP* 100 MG PO SCH ×2 (09:23→20:21)
--- NOTE | 2018-10-19 09:49 | PN ---
Progress Note - Progress Note Date of Service: 10/19/18 SOAP: Subjective: []Patient seen OOB in chair. Daughter present at bedside. Denies SOB, CP, palpitations. Hoping to go home tomorrow. Objective: [] Vital Signs Temp 98.3 F 10/19/18 07:37 Pulse 83 10/19/18 07:37 Resp 18 10/19/18 09:23 BP 136/61 10/19/18 07:37 Pulse Ox 100 10/19/18 07:37 Intake & Output 10/18/18 10/19/18 10/19/18 18:59 06:59 18:59 Intake Total 800 1640 0 Output Total 425 625 300 Balance 375 1015 -300 Weight 156 lb 3.2 oz Intake: IV Fluids 800 0 LR 800 0 Oral 1640 Output: Urine 0 300 Soto 225 625 Estimated Blood Loss 200 Laboratory Results - last 24 hr 10/19/18 10/19/18 10/19/18 05:28 05:29 05:29 Hgb 11.4 L Hct 33 L Plt Count 216 MPV 8.0 INR (Anticoag Therapy) 0.90 Sodium 133 L Potassium 4.1 Chloride 100 L Carbon Dioxide 29 Anion Gap 4 BUN 14 Creatinine 0.81 Est GFR ( Amer) 82.1 Est GFR (Non-Af Amer) 67.9 BUN/Creatinine Ratio 17.3 Glucose 88 Calcium 8.9 Left knee dressings are dry and intact calf NT and soft +DF/PF left ankle sensation intact distally 2+ DP pulse Assessment: []s/p left total knee arthroplasty POD #1 Plan: []PT/OT WBAT LLE Coumadin with Lovenox bridge- 8 mg today Possible discharge to home with VNS 10/[address] Foss as scheduled in 10-14 days
[2018-10-19] MEDS: Enoxaparin(*) 40 MG/0.4 ML SYR SUBCUT SCH (12:32)
--- NOTE | 2018-10-19 13:28 | PN ---
Subjective Date of Service: 10/19/18 Interval History: Ms. Sigala reports having pain in her left knee but denies other complaint including chest pain, SOB, nausea, or abdominal pain. Objective Active Medications: Acetaminophen (Tylenol Tab*) 975 mg PO Q8HR LIBBY Bisacodyl (Dulcolax Supp*) 10 mg [place] DAILY PRN Cyclobenzaprine HCl (Flexeril Tab*) 5 mg PO TID PRN Diphenhydramine HCl (Benadryl Iv*) 25 mg IV Q6H PRN Diphenhydramine HCl (Benadryl Po*) 25 mg PO Q6H PRN Docusate Sodium (Colace Cap*) 100 mg PO BID LIBBY Enoxaparin Sodium (Lovenox(*)) 40 mg SUBCUT Q24H LIBBY Lactated Ringer's (Lactated Ringers 1000 Ml Bag*) 1,000 mls @ 100 mls/hr IV PER RATE LIBBY Lactulose (Lactulose*) 30 ml PO Q6H PRN Magnesium Hydroxide (Milk Of Magnesia Liq*) 30 ml PO BID LIBBY Magnesium Hydroxide (Milk Of Magnesia Liq*) 30 ml PO Q6H PRN Morphine Sulfate (Morphine Vial*) 2 mg IV Q2H PRN Ondansetron HCl (Zofran Inj*) 4 mg IV Q6H PRN Oxycodone HCl (Roxycodone Tab*) 10 mg PO Q4H PRN Oxycodone/Acetaminophen (Percocet 5/325 Tab*) 1 tab PO Q4H PRN Oxycodone/Acetaminophen (Percocet 5/325 Tab*) 2 tab PO Q4H PRN Pharmacy Profile Note (Coumadin Daily Reminder*) 1 note FOLLOW UP 1700 [facility] Polyethylene Glycol/Electrolytes (Miralax*) 17 gm PO DAILY PRN Ramipril (Altace Cap*) 10 mg PO BEDTIME LIBBY Tramadol HCl (Ultram*) 50 mg PO Q6H PRN Warfarin Sodium (Coumadin Tab(*)) 8 mg PO ONCE@1700 ONE; Protocol Vital Signs: Temp Pulse Resp BP Pulse Ox 98.3 F 83 18 136/61 100 10/19/18 07:37 10/19/18 07:37 10/19/18 13:01 10/19/18 07:37 10/19/18 07:37 Oxygen Devices in Use Now: None Appearance: Female sitting up in chair in NAD Eyes: No Scleral Icterus Ears/Nose/Mouth/Throat: Mucous Membranes Moist Respiratory: Symmetrical Chest Expansion and Respiratory Effort Cardiovascular: NL Sounds; No Murmurs; No JVD, No Edema Skin: No Rash or Ulcers Neurological: Alert and Oriented x 3, NL Muscle Strength and Tone Nutrition: Taking PO's Result Diagrams: 10/19/18 05:29 10/19/18 05:29 Assess/Plan/Problems-Billing Assessment: Ms Sigala is an 83 yo F with a PMH of HTN who was admitted on 10/18/18 for left total knee arthroplasty. - Patient Problems (1) Status post knee replacement Comment: - Management per ortho - Hgb 11.4 - Pain meds prn with bowel regimen - PT/OT (2) Hypertension Comment: - SBP 100-130s - Continue rampipril (3) DVT prophylaxis Comment: - Lovenox with warfarin per ortho (4) Full code status Comment: Status and Disposition: Inpatient. Disposition per ortho.
[2018-10-19] MEDS: Cyclobenzaprine TAB* 10 MG PO PRN ×2 (14:24→22:33)
[2018-10-19] MEDS ORDERED: Warfarin TAB(*) 4 MG PO ONE (17:00)
[2018-10-19] MEDS: traMADol TAB* 50 MG PO PRN (18:25)
[2018-10-19] MEDS: Ramipril CAP* 10 MG PO SCH (20:21)
[2018-10-20] MEDS: oxyCODONE/Acetamin 5/325 MG* TAB PO PRN ×3 (00:27→09:57)
[2018-10-20] MEDS: oxyCODONE TAB* 5 MG TAB PO PRN ×4 (02:32→20:58)
[2018-10-20 05:44] LABS: Hematocrit 33 % (35-47); Hemoglobin 11.1 g/dl (12.0-16.0); Mean Platelet Volume 8.2 fL (7.4-10.4); Platelet Count 195 10^3/ul (150-450)
[2018-10-20 05:53] LABS: INR 1.1 (0.77-1.02)
[2018-10-20] MEDS: Acetaminophen TAB* 325 MG PO SCH ×3 (06:23→20:57)
[2018-10-20] MEDS: Cyclobenzaprine TAB* 10 MG PO PRN (07:23)
[2018-10-20] MEDS: Magnesium Hydroxide LIQ* 30 ML UDC PO SCH ×2 (07:23→20:58)
[2018-10-20] MEDS: Docusate CAP* 100 MG PO SCH ×2 (07:24→20:57)
--- NOTE | 2018-10-20 10:49 | PN ---
Progress Note - Progress Note Date of Service: 10/20/18 SOAP: Subjective: Pt is doing well. Has some dizziness and fatigue. Doing well with PT. Denies calf pain , F/C, CP,SOB Objective: PE- 83 y/o WDWN F NAD, A&Ox3 LLE- dressing changed inc c/d/i, no sign of infection, calf soft NT, NVI Vital Signs Temp Pulse Resp BP Pulse Ox 98.8 F 81 18 118/61 97 10/20/18 07:42 10/20/18 07:42 10/20/18 09:57 10/20/18 07:42 10/20/18 07:42 Laboratory Results - last 24 hr 10/20/18 10/20/18 05:25 05:25 Hgb 11.1 L Hct 33 L Plt Count 195 MPV 8.2 INR (Anticoag Therapy) 1.10 H Assessment: []s/p left total knee arthroplasty POD #2 Plan: []PT/OT WBAT LLE Coumadin with Lovenox bridge- 8 mg today Plan discharge to home with VNS 10/[address] Foss as scheduled in 10-14 days
[2018-10-20] MEDS: traMADol TAB* 50 MG PO PRN (13:00)
[2018-10-20] MEDS: Enoxaparin(*) 40 MG/0.4 ML SYR SUBCUT SCH (13:02)
--- NOTE | 2018-10-20 16:43 | PN ---
Subjective Date of Service: 10/20/18 Interval History: Patient seen and examined. OOB to chair, denies fever or chills, surgical pain well controlled, no acute complaints. Objective Active Medications: Acetaminophen (Tylenol Tab*) 975 mg PO Q8HR [facility] Last Admin: 10/20/18 13:04 Dose: Not Given Bisacodyl (Dulcolax Supp*) 10 mg HI DAILY PRN PRN Reason: constipation Cyclobenzaprine HCl (Flexeril Tab*) 5 mg PO TID PRN PRN Reason: SPASMS Last Admin: 10/20/18 07:23 Dose: 5 mg Diphenhydramine HCl (Benadryl Iv*) 25 mg IV Q6H PRN PRN Reason: itching Diphenhydramine HCl (Benadryl Po*) 25 mg PO Q6H PRN PRN Reason: INSOMNIA Docusate Sodium (Colace Cap*) 100 mg PO BID [facility] Last Admin: 10/20/18 07:24 Dose: 100 mg Enoxaparin Sodium (Lovenox(*)) 40 mg SUBCUT Q24H [facility] Last Admin: 10/20/18 13:02 Dose: 40 mg Lactated Ringer's (Lactated Ringers 1000 Ml Bag*) 1,000 mls @ 100 mls/hr IV PER RATE [facility] Last Admin: 10/19/18 00:38 Dose: 100 mls/hr Lactulose (Lactulose*) 30 ml PO Q6H PRN PRN Reason: constipation Magnesium Hydroxide (Milk Of Magnesia Liq*) 30 ml PO BID [facility] Last Admin: 10/20/18 07:23 Dose: 30 ml Magnesium Hydroxide (Milk Of Magnesia Liq*) 30 ml PO Q6H PRN PRN Reason: constipation Morphine Sulfate (Morphine Vial*) 2 mg IV Q2H PRN PRN Reason: PAIN Ondansetron HCl (Zofran Inj*) 4 mg IV Q6H PRN PRN Reason: nausea Last Admin: 10/19/18 18:25 Dose: 4 mg Oxycodone HCl (Roxycodone Tab*) 10 mg PO Q4H PRN PRN Reason: moderate to severe pain Last Admin: 10/20/18 15:34 Dose: 10 mg Oxycodone/Acetaminophen (Percocet 5/325 Tab*) 1 tab PO Q4H PRN PRN Reason: PAIN Oxycodone/Acetaminophen (Percocet 5/325 Tab*) 2 tab PO Q4H PRN PRN Reason: PAIN Last Admin: 10/20/18 09:57 Dose: 2 tab Pharmacy Profile Note (Coumadin Daily Reminder*) 1 note FOLLOW UP 1700 [facility] Last Admin: 10/19/18 16:33 Dose: 1 note Polyethylene Glycol/Electrolytes (Miralax*) 17 gm PO DAILY PRN PRN Reason: Constipation Ramipril (Altace Cap*) 10 mg PO BEDTIME [facility] Last Admin: 10/19/18 20:21 Dose: 10 mg Tramadol HCl (Ultram*) 50 mg PO Q6H PRN PRN Reason: PAIN Last Admin: 10/20/18 13:00 Dose: 50 mg Warfarin Sodium (Coumadin Tab(*)) 8 mg PO ONCE@1700 [facility]; Protocol Stop: 10/20/18 17:01 Vital Signs - 8 hr 10/20/18 10/20/18 10/20/18 09:57 11:46 13:00 Temperature 99.4 F Pulse Rate 90 Respiratory 18 16 18 Rate Blood Pressure 116/55 (mmHg) O2 Sat by Pulse 96 Oximetry 10/20/18 10/20/18 10/20/18 15:34 15:56 16:00 Temperature 99.1 F Pulse Rate 87 Respiratory 18 18 Rate Blood Pressure 138/69 (mmHg) O2 Sat by Pulse 97 97 Oximetry Oxygen Devices in Use Now: None Appearance: alert, NAD Eyes: No Scleral Icterus, PERRLA Ears/Nose/Mouth/Throat: NL Teeth, Lips, Gums, Mucous Membranes Moist Neck: NL Appearance and Movements; NL JVP, Trachea Midline Respiratory: Symmetrical Chest Expansion and Respiratory Effort, Clear to Auscultation Cardiovascular: NL Sounds; No Murmurs; No JVD, RRR, No Edema Abdominal: NL Sounds; No Tenderness; No Distention Extremities: No Edema, No Clubbing, Cyanosis, - Skin: No Rash or Ulcers, - - dressing CDI Neurological: Alert and Oriented x 3 Nutrition: Taking PO's Result Diagrams: 10/20/18 05:25 10/19/18 05:29 Assess/Plan/Problems-Billing Assessment: This is an 83 yo F with a PMH of HTN admitted for elective left total knee arthroplasty. - Patient Problems (1) Status post knee replacement Code(s): Z96.659 - PRESENCE OF UNSPECIFIED ARTIFICIAL KNEE JOINT SNOMED Code(s ): 334368706 Comment: - POD2 - POC as per ortho - Pain control, bowel regimen, PT/OT - Progressing (2) Hypertension Code(s): I10 - ESSENTIAL (PRIMARY) HYPERTENSION SNOMED Code(s): 49954545 Comment: - Stable on ramipril (3) DVT prophylaxis Code(s): QJL9707 - SNOMED Code(s): 443127270 Comment: - Lovenox with warfarin bridge per ortho (4) Full code status Code(s): Z78.9 - OTHER SPECIFIED HEALTH STATUS SNOMED Code(s): 095806140 Comment: Status and Disposition: Inpatient. Disposition per ortho.
[2018-10-20] MEDS ORDERED: Warfarin TAB(*) 4 MG PO ONE (17:00)
[2018-10-20] MEDS: Ramipril CAP* 10 MG PO SCH (20:58)
[2018-10-21] MEDS: oxyCODONE/Acetamin 5/325 MG* TAB PO PRN ×2 (03:15→09:30)
[2018-10-21] MEDS: Acetaminophen TAB* 325 MG PO SCH (05:22)
[2018-10-21 05:57] LABS: Hematocrit 30 % (35-47); Hemoglobin 10.2 g/dl (12.0-16.0); Mean Platelet Volume 8.3 fL (7.4-10.4); Platelet Count 193 10^3/ul (150-450)
[2018-10-21 06:03] LABS: INR 1.67 (0.77-1.02)
[2018-10-21] MEDS ORDERED: Apixaban* 2.5 MG TAB PO SCH (09:00)
--- NOTE | 2018-10-21 09:07 | PN ---
Progress Note - Progress Note Date of Service: 10/21/18 SOAP: Subjective: Pt is doing well pain controlled. Doing well with PT. Denies CP/SOB, F/C, calf pain Objective: PE- 83 y/o WDWN F NAD, A&Ox3 LLE- dressing c/d/i, calf soft NT, +DF/PF, SILT distally Vital Signs Temp Pulse Resp BP Pulse Ox 99.1 F 89 18 126/60 98 10/21/18 03:11 10/21/18 03:11 10/21/18 05:45 10/21/18 03:11 10/21/18 03:11 Laboratory Results - last 24 hr 10/21/18 10/21/18 05:15 05:16 Hgb 10.2 L Hct 30 L Plt Count 193 MPV 8.3 INR (Anticoag Therapy) 1.67 H Assessment: POD 3 S/P Left TKA Plan: WBAT- cont PT/OT eliquis for dvt prophylaxis flexaril and percocet for pain colace for constipation DC to home with VNS today F/U 10-14 days post op with Dr. Foss
[2018-10-21] MEDS: Magnesium Hydroxide LIQ* 30 ML UDC PO SCH (09:29)
[2018-10-21] MEDS: Docusate CAP* 100 MG PO SCH (09:29)
--- NOTE | 2018-10-21 09:52 | PN ---
Subjective Date of Service: 10/21/18 Interval History: Patient seen and examined. Plan for DC today as per ortho. Has been OOB, ambulating, pain well controlled, no BM as yet but passing flatus. Objective Active Medications: Acetaminophen (Tylenol Tab*) 975 mg PO Q8HR [facility] Last Admin: 10/21/18 05:22 Dose: Not Given Apixaban (Eliquis*) 2.5 mg PO BID [facility] Last Admin: 10/21/18 09:29 Dose: 2.5 mg Bisacodyl (Dulcolax Supp*) 10 mg [place] DAILY PRN PRN Reason: constipation Cyclobenzaprine HCl (Flexeril Tab*) 5 mg PO TID PRN PRN Reason: SPASMS Last Admin: 10/20/18 07:23 Dose: 5 mg Diphenhydramine HCl (Benadryl Iv*) 25 mg IV Q6H PRN PRN Reason: itching Diphenhydramine HCl (Benadryl Po*) 25 mg PO Q6H PRN PRN Reason: INSOMNIA Docusate Sodium (Colace Cap*) 100 mg PO BID [facility] Last Admin: 10/21/18 09:29 Dose: 100 mg Lactated Ringer's (Lactated Ringers 1000 Ml Bag*) 1,000 mls @ 100 mls/hr IV PER RATE [facility] Last Admin: 10/19/18 00:38 Dose: 100 mls/hr Lactulose (Lactulose*) 30 ml PO Q6H PRN PRN Reason: constipation Magnesium Hydroxide (Milk Of Magnesia Liq*) 30 ml PO BID [facility] Last Admin: 10/21/18 09:29 Dose: 30 ml Magnesium Hydroxide (Milk Of Magnesia Liq*) 30 ml PO Q6H PRN PRN Reason: constipation Morphine Sulfate (Morphine Vial*) 2 mg IV Q2H PRN PRN Reason: PAIN Ondansetron HCl (Zofran Inj*) 4 mg IV Q6H PRN PRN Reason: nausea Last Admin: 10/19/18 18:25 Dose: 4 mg Oxycodone HCl (Roxycodone Tab*) 10 mg PO Q4H PRN PRN Reason: moderate to severe pain Last Admin: 10/20/18 20:58 Dose: 10 mg Oxycodone/Acetaminophen (Percocet 5/325 Tab*) 1 tab PO Q4H PRN PRN Reason: PAIN Oxycodone/Acetaminophen (Percocet 5/325 Tab*) 2 tab PO Q4H PRN PRN Reason: PAIN Last Admin: 10/21/18 09:30 Dose: 2 tab Polyethylene Glycol/Electrolytes (Miralax*) 17 gm PO DAILY PRN PRN Reason: Constipation Last Admin: 10/21/18 03:31 Dose: 17 gm Ramipril (Altace Cap*) 10 mg PO BEDTIME [facility] Last Admin: 10/20/18 20:58 Dose: 10 mg Tramadol HCl (Ultram*) 50 mg PO Q6H PRN PRN Reason: PAIN Last Admin: 10/20/18 13:00 Dose: 50 mg Vital Signs - 8 hr 10/21/18 10/21/18 10/21/18 03:11 03:15 05:45 Temperature 99.1 F Pulse Rate 89 Respiratory 16 16 18 Rate Blood Pressure 126/60 (mmHg) O2 Sat by Pulse 98 Oximetry 10/21/18 09:30 Temperature Pulse Rate Respiratory 18 Rate Blood Pressure (mmHg) O2 Sat by Pulse Oximetry Oxygen Devices in Use Now: None Appearance: alert, well appearing, NAD Eyes: No Scleral Icterus, PERRLA Ears/Nose/Mouth/Throat: NL Teeth, Lips, Gums, Mucous Membranes Moist Neck: NL Appearance and Movements; NL JVP, Trachea Midline Respiratory: Symmetrical Chest Expansion and Respiratory Effort, Clear to Auscultation Cardiovascular: NL Sounds; No Murmurs; No JVD, RRR, No Edema Abdominal: NL Sounds; No Tenderness; No Distention Extremities: No Clubbing, Cyanosis, - - dressing CDI, brisk cap refill Skin: No Rash or Ulcers Neurological: Alert and Oriented x 3, NL Sensation Nutrition: Taking PO's Result Diagrams: 10/21/18 05:15 10/19/18 05:29 Assess/Plan/Problems-Billing Assessment: This is an 83 yo F with a PMH of HTN admitted for elective left total knee arthroplasty. - Patient Problems (1) Status post knee replacement Code(s): Z96.659 - PRESENCE OF UNSPECIFIED ARTIFICIAL KNEE JOINT SNOMED Code(s ): 567330810 Comment: - POD3 - POC as per ortho, discharge today - Pain control, bowel regimen, PT/OT - Progressing well (2) Hypertension Code(s): I10 - ESSENTIAL (PRIMARY) HYPERTENSION SNOMED Code(s): 31329464 Comment: - Stable on ramipril (3) DVT prophylaxis Code(s): GMU2170 - SNOMED Code(s): 728283019 Comment: - Lovenox with warfarin bridge per ortho (4) Full code status Code(s): Z78.9 - OTHER SPECIFIED HEALTH STATUS SNOMED Code(s): 496786917 Comment: Status and Disposition: Plan for discharge to home with VNS today. Medically optimized for discharge.
[2018-10-21 12:01] VITALS: BP 140/63
[2018-10-21] MEDS: Cyclobenzaprine TAB* 10 MG PO PRN (12:29)
[2018-10-21] MEDS: traMADol TAB* 50 MG PO PRN (12:30)
--- NOTE | 2018-10-22 02:42 | DS ---
DISCHARGE SUMMARY: DATE OF ADMISSION: 10/18/18 DATE OF DISCHARGE: 10/21/18 ATTENDING SURGEON: Dr. Kaela Foss * (DICTATED BY JASON RAGLAND) ADMITTING DIAGNOSIS: Status post let total knee arthroplasty for treatment of severe left knee osteoarthritis. SECONDARY DIAGNOSES: 1. Hypertension. 2. Breast cancer. CONSULTATIONS: PT/OT, Medicine. HISTORY OF PRESENT ILLNESS: Ms. Sigala is an 83-year-old female with end- stage osteoarthritis of the left knee. She failed conservative treatment and elected to proceed with left total knee arthroplasty with Dr. Foss on 10/18/18. HOSPITAL COURSE: She was admitted to [facility] on 10/18/18. She underwent a left total knee arthroplasty. Postoperatively, she recovered in the short-stay surgical unit. Postop day #1, the [place] was removed. She was able to urinate on her own. She was advanced to a regular diet without difficultly and her pain was controlled with oral Percocet. She was restarted on home medications. Labs and vitals remained stable. She was able to weight bear as tolerated on the left lower extremity. She advanced appropriately with PT and OT. DVT prophylaxis was managed with Eliquis. By postop day 3, she was orthopedically and medically stable for discharge to home with VNS services. PHYSICAL EXAMINATION: General: An 83-year-old well-developed, well-nourished female, in no acute distress. Alert and oriented x3. Appropriate mood and affect. Left lower extremity: Dressing was changed, mild erythema surrounding the incision, well healing surgical incision. Calves soft, nontender. +5/5 strength at ankle, dorsiflexion, and plantar flexion. +2 DP pulse. Sensation intact to light touch distally. DISCHARGE CONDITION: Stable. DISCHARGE MEDICATIONS: Home medications continued on discharge to include: Ramipril 10 mg by mouth at bedtime. New medications on discharge Include: 1. Eliquis 2.5 mg by mouth twice a day x4 weeks. 2. Cyclobenzaprine 5 mg 1 to 2 tabs 3 times a day as needed. 3. Docusate sodium 100 mg 1 by mouth twice a day. 4. Percocet 5/325 1 to 2 every 4 to 6 hours as needed for pain. 5. Keflex 500 mg 1 by mouth 4 times a day x7 days for redness of the incision. DISCHARGE INSTRUCTIONS: The patient will be weightbearing as tolerated. Wound care, it is okay for her to shower postop day 3. No bathing, swimming, or submerging the wound. Use gentle soap; to pat dry. Cover with a gauze, YUNIOR wrap, and tape. Call orthopedic office with increased drainage, redness, pain or fever and go to the ER with shortness of breath or chest pain. Diet: Regular diet. Increase fluids and fiber to prevent constipation. Continue to use the stool softeners. Call office if no bowel movement within 48 hours. Continue PT and OT exercises as shown. Visiting home nurse to do wound checks. Eliquis 2.5 mg 1 by mouth twice a day x30 days to prevent blood clot. Do not take aspirin, ibuprofen or naproxen while on Eliquis. Pain control with Percocet 5/325, one to two every 4 to 6 hours, maximum 10 per a day, do not exceed 4000 mg Tylenol from all sources; cyclobenzaprine 5 mg 1 to 2 every 8 hours as needed for muscle pain or spasms. Colace 100 mg 1 tab 3 times a day as needed for constipation. Keflex 500 mg 1 by mouth 4 times a day x7 days for redness of the incision. Antibiotics will be required prior to any dental work. She will follow up with Dr. Foss in 10 to 14 days. She can call for an appointment. She may call office with any questions or concerns. JASON RAGLAND [id number]/[facility] #: [id number] [facility]ENTERMiley
== END 2018-10-21 13:15 | disposition home health service (06) | DRG 470 ==
LOC: AA 07:07 → SSU 14:21
PROVIDERS: ADMIT Orthopaedic Surgery Adult Reconstructive Orthopaedic Surgery; ATTEND Orthopaedic Surgery Adult Reconstructive Orthopaedic Surgery
PROC: 0SRD0J9 Replacement of Left Knee Joint with Synthetic Substitute, Cemented, Open Approach (ICD-10-PCS; principal; 2018-10-18 09:00)
DX: M17.12 Unilateral primary osteoarthritis, left knee (principal); I10 Essential (primary) hypertension; M25.762 Osteophyte, left knee; M85.862 Other specified disorders of bone density and structure, left lower leg; Z85.3 Personal history of malignant neoplasm of breast; Z92.21 Personal history of antineoplastic chemotherapy; Z92.3 Personal history of irradiation; Z79.899 Other long term (current) drug therapy
CPT/HCPCS: 36415; 80048; 85014; 85018; 85049; 85610; 88305; 88311; A9270-GY; C1776; G8978-GP-CK; G8978-GP-CL; G8979-GP-CI; G8987-GO-CK; G8988-GO-CI; J0360; J0690; J1100; J1170; J1650; J2250; J2405; J2795; J3010

== ENCOUNTER → 2019-03-29 10:17 | Day surgery (SDC) | payer MEDICARE ==
--- NOTE | 2019-03-21 17:46 | HP ---
HISTORY AND PHYSICAL: DATE OF ADMISSION: 03/29/19 The patient is scheduled for surgery at the hospital on 03/29/19, which is Monday. ATTENDING PHYSICIAN: Dr. Milian.* (DICTATED BY JASON CARABALLO) HISTORY OF PRESENT ILLNESS: This is an 83-year-old female who first presented to our office back in January 2017 where she had presented with a mass in her right breast. She underwent a lumpectomy of the right breast by Dr. Milian at [facility], which proved to be positive for adenocarcinoma, invasive ductal carcinoma measuring 19 mm, grade 3/3 at that initial surgery. She went on to have a sentinel node biopsy, which proved to be negative and then her followup treatment for the breast was with Dr. Moore for 3 sessions of chemotherapy, which went through April and May 2017, then followed by Dr. Nichole where she completed radiation therapy to the right breast in the fall. Since that time, she has been followed by Dr. Moore, Dr. Nichole as well as ourselves with routine mammograms and followup physical exams. Early this year in 2018, the patient had lost a significant amount of weight, approximately 17 pounds and questioned if she had a new fullness in the right breast along her scar in the upper quadrant of the right breast. She went on to have a mammogram and an ultrasound. Her annual mammogram and ultrasound first were done on 01/04/19. This was at [facility] and the report revealed scarring, architectural distortion with some shadowing in the 12 o'clock region of the lumpectomy site. An ultrasound was done as well revealing some of this distortion. The patient then went on for repeat mammogram and ultrasound on . The final impression was that there had been no suspicious interval change on the mammogram of the right breast. Followup mammogram in 6 months was recommended, but further evaluation of the right breast, possible fine needle aspiration should also be considered and the patient was referred back to our office through Dr. Nichole and Dr. Moore for that evaluation. We had seen the patient on 03/12/19. The right breast revealed a well-healed lumpectomy scar in the upper quadrant of the right breast. There is an area of fullness in the mid section of that scar in the 12 o'clock region. The patient is not tender. This could easily be consistent with scar tissue only. It is not a well-defined mass or a lump. It is not felt to be suspicious on exam. The remaining breast on the right is unremarkable. There is no lymphadenopathy on the right. The left breast was examined and that was found to be normal left breast with the axilla on the left found to be negative. We did an ultrasound on 03/12/19 when she was evaluated and this revealed in the 12 o'clock region in the area of fullness, a hypoechogenic region. This measured approximately a centimeter. It was not well-defined and easily could be consistent with that of postoperative changes, but in light of the fact of her recent breast cancer history, we felt it would be prudent to further evaluate this with a fine needle aspiration, so on 03/12/19, we did just that. We did 2 aspirations, 1 with ultrasound guidance and 1 more through field and this was submitted to [facility]. The final cytology results returned. This revealed suspicious for ductal adenocarcinoma. We discussed the results with the patient and different options that we could then go forward with. One option is to repeat this fine needle aspiration to do this at [facility] onset triage so the assessment is done immediately or to analyze the lump itself as well as this hypoechogenic region by doing an excisional biopsy and analyzing the entire area of concern. After discussing the pros and cons, the patient wishes to proceed with excisional biopsy to obtain a definitive diagnosis in the right breast in the area previously with breast cancer and now with a fine needle aspiration revealing suspicious for adenocarcinoma. We have scheduled this surgery for 03/29/19. This will be performed at [facility]. We will use ultrasound and place a wire for ultrasound guidance for Dr. Milian and he will do an excisional biopsy so that we may analyze this area of concern completely and rule out carcinoma in this region or obtain more information that is conclusive for carcinoma. PAST MEDICAL HISTORY: Includes arthritis of both knees. She denies any neurologic symptoms, GI or disorders. She does take medicine for hypertension and this has been in good control, ramipril 10 mg q. day. PAST SURGICAL HISTORY: Significant for previous surgeries, most recently she underwent a total left knee replacement with Dr. Foss at [facility] on 10/18/18. In 2017 was her breast surgery for carcinoma of the right breast. She underwent a lumpectomy of the right breast in February 2017, followed by separate surgery for sentinel node biopsy on the right breast by Dr. Milian which proved to be negative. Prior to that, she had undergone in 2011 an oophorectomy as well as cataract surgery. MEDICATIONS: She takes ramipril 10 mg daily. No other medication. ALLERGIES: She has no known allergies to any medicines. FAMILY HISTORY: Significant for mother and father diagnosed with cardiac disease and hypertension. Her mother did have breast cancer. She has a sister with leukemia. SOCIAL HISTORY: She is an active 83-year-old, looks much younger than her age. 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 She has 3 full-grown children. Previously smoked many years ago, does not smoke now. Alcohol intake is 2 to 3 martinis a week. No history of hepatitis. REVIEW OF SYSTEMS: After her total left knee surgery, she did lose about 17 pounds and that is what initially made her think there were some changes in the right breast and was not sure if it was related to weight loss or a new finding. PHYSICAL EXAMINATION GENERAL: She is a well-developed 83-year-old female, who appears younger than her age, in good health, active. VITAL SIGNS: In our office on 03/19/19, the patient's vital signs are as follows: She is 5 feet 5 inches. Her weight is 153 pounds. Her blood pressure is 165/94. Her BMI is 51. Her pulse is 69, respiratory rate was 18. HEENT: Within normal limits. NECK: Supple. There is no JVD or carotid bruits. Her thyroid is felt to be normal. LUNGS: Clear throughout. There are no wheezes or rhonchi. HEART: Regular rhythm without a murmur heard. BREASTS: Her breast exam as mentioned previously. She has a well-healed scar in the upper quadrant of her right breast from previous lumpectomy. There is some thickening or firmness in the mid section of this scar, which could be related to postsurgical changes and/or questioning some changes in the breast related to her breast cancer. It is not felt to be suspicious on physical exam. The axilla on the right is negative. The left breast was examined and found to be negative. The axilla on the left is negative. ABDOMEN: Soft and nontender. There are no masses. EXTREMITIES: Full range of motion without limitations. NEUROLOGIC: She is neurologically intact and nonfocal. IMPRESSION: An 83-year-old female diagnosed with breast cancer in 2017, invasive ductal carcinoma of the right breast, treated with lumpectomy, sentinel node found to be negative and followup treatment for this was chemotherapy, followed by radiation to the right breast. She has done well. There is a question of some new prominence in the right breast and fine needle aspiration is suspicious for ductal adenocarcinoma. PLAN: For all these reasons, plan is for the patient to return to the OR to do an excisional biopsy of this nodule of the right breast. Dr. Milian will also place a wire with ultrasound guidance into this hypoechogenic region seen by ultrasound, so this will be removed as well at the time of excisional biopsy of the right breast. The patient feels that she will do well with local anesthesia only and would not require IV sedation, but at this point, we will leave that to the time of surgery. It should be noted that she did have a left knee replacement in September and would need to be covered with antibiotics in regards to that as well preoperatively. JASON CARABALLO [id number]/[facility] #: [id number] [facility]
[~2019-03-29 10:17] MED LIST changes: +Acetaminophen TAB* 325 MG PO PRN; -Buffered Lidocaine 0.9% SYRIN* 5 ML/SYR SYRINGE INTRADERM ONE; +Buffered Lidocaine 1% SYRIN* 1 ML/SYRINGE INTRADERM ONE; +Bupivacaine 0.5% W/EPI SDV* 30 ML VIAL ONE; -Dexamethasone IV* 4 MG/ML 1 ML (4 MG) IV SLOW PU ONE; -Famotidine IV* 10 MG/ML 2 ML (20 mg) IV ONE; -Gabapentin CAP(*) 300 MG PO ONE; +Lactated Ringers 1000 ML Bag* 1,000 ML IV SCH; +Lidocaine 1% INJ* 10 MG/ML 30 ML SDV ONE; +Lidocaine 2% PF * 5 ML VIAL ONE; +Mepivacaine 2% MPF (20 MG/ML)* 20 ML MPF ONE; +Midazolam* 1 MG/ML 2 ML VIAL (2 MG) ONE; +Naloxone* 0.4 MG/ML 1 ML VIAL IV PRN; +Ondansetron INJ* 2 MG/ML VIAL IV PRN; +Propofol* 10 MG/ML 20 ML BTL ONE; +Propofol* 500 MG/50 ML BTL ONE; +ROPIVACAINE 5 MG/ML 30 ML BTL (0.5%) ONE; +ceFAZolin 2 GM PREMIX in ORs 2 GM/50 ML BAG IVPB ONE; -celeCOXIB CAP* 100 MG PO ONE; -celeCOXIB CAP* 200 MG PO ONE; +oxyCODONE TAB* 5 MG TAB PO PRN
[2019-03-29 15:15] VITALS: BP 163/89
--- NOTE | 2019-03-29 18:04 | OP ---
DATE OF OPERATION: 03/29/19 [facility] DATE OF : 39 SURGEON: Wisam Milian MD. COMMUNICATIONS SCIENTIST: Zohreh Waldrop NP. ANESTHESIA: Pectoral block and MAC. PRE-OP DIAGNOSIS: Right breast mass. POST-OP DIAGNOSIS: Right breast mass. OPERATIVE PROCEDURES: 1. Ultrasound-guided needle localization. 2. Excisional breast biopsy, right breast. ESTIMATED BLOOD LOSS: Approximately 20 cc. SPECIMEN: Right breast lump with lateral and inferior lateral margins. INDICATIONS: The patient is an 83-year-old female with history of right breast cancer. She had undergone lumpectomy with radiation. She was node negative, and most recently she noticed a lump in the area of the previous surgery; it was somewhat well defined. A fine-needle aspiration revealed that the cells are suspicious for recurrence. For this reason, the patient is being admitted for an excisional biopsy of the right breast lump, possible recurrence. DESCRIPTION OF PROCEDURE: The patient was taken to the operating room. She underwent proper patient identification and site of surgery. She had undergone a pectoral block prior to the procedure by Dr. Swenson. The patient was placed in a supine position. She was prepped and draped in the usual sterile fashion. Under mild sedation using the ultrasound to locate the mass, a Hassan needle 7.5 cm long was guided into the middle of the mass. The hook was deployed just past the mass and after this was done, an oval incision around the prior surgical scar tissue was carried down surrounding the area of the palpable mass , which was almost completely down to the pectoral fascia. The mass was completely removed with the hook wire in place. There was some indurated tissue towards the inferior medial and lateral specimen. Extra tissue was removed in these areas and sent as a specimen. At the end of the procedure, the area was checked for hemostasis. No bleeding was noted. No areas of induration or suspicious for malignancy were noted. We then proceeded to close in layers, subcutaneous tissue with 4-0 Vicryl suture and the skin was closed with a subcuticular 4-0 Prolene suture and Steri-Strips. The patient tolerated the procedure well. She was recovered, given instructions, and discharged home in good condition. [id number]/[facility] #: [id number] [facility]
== END | disposition home or self-care (01) ==
LOC: OR 10:17
PROVIDERS: ATTEND Surgery
DX: C50.411 Malignant neoplasm of upper-outer quadrant of right female breast (principal); Z85.3 Personal history of malignant neoplasm of breast; I10 Essential (primary) hypertension; M17.0 Bilateral primary osteoarthritis of knee
CPT/HCPCS: 88307; 88360; J0670; J0690; J2250; J2704; J2795

== ENCOUNTER → 2019-05-03 10:38 | Day surgery (SDC) | payer MEDICARE ==
--- NOTE | 2019-04-22 10:32 | HP ---
HISTORY AND PHYSICAL: DATE OF ADMISSION: 05/03/19 The patient is scheduled for surgery at [facility] on 05/03/19. ATTENDING PHYSICIAN: Wisam Milian MD * (DICTATED BY JASON CARABALLO) CHIEF COMPLAINT: Recurrent carcinoma of the right breast after recent excisional biopsy returning now for lumpectomy of the right breast to be performed by Dr. Milian. HISTORY OF PRESENT ILLNESS: This is an 83-year-old female who initially was diagnosed with carcinoma of the breast back in January 2017. She had undergone a lumpectomy which was positive for adenocarcinoma, invasive ductal carcinoma measuring 19 mm, grade 3/3. She went on to have a sentinel node biopsy, which was negative. Her followup treatment included chemotherapy [address] Moore as well as radiation therapy with Dr. Nichole at [facility]. Since 2016, she has been followed on a regular basis with Dr. Moore, Dr. Nichole and ourselves here at Dr. Milian's office at [facility]. In early 2018, the patient underwent a knee replacement and lost significant amount of weight 17 pounds and she questioned when she did self exam early this year that the fullness in the right breast where the scar tissue was was larger than she had noted before. She did not know if this was related to her weight or not. She underwent mammograms, ultrasounds which were inconclusive. She was referred back here to our office and a fine-needle aspiration revealed the cells to be suspicious for adenocarcinoma of the breast that was in late February, early March. We had her return to the operating room on 03/29/[address] Milian and underwent a wide excision of this fullness because of atypical cells that were suspicious for adenocarcinoma. The final report on the excisional biopsy of this right breast mass revealed invasive ductal carcinoma of the breast which measured 23 mm in size. It was grade 3/3 and the final results on the tumor revealed that it was estrogen positive, progesterone negative, HER-2 negative. Her initial breast cancer on the right breast back in 2016 was triple negative. In light of these findings, we discussed surgical options which included a mastectomy versus a lumpectomy of this right breast because of the newly diagnosed right breast cancer. The patient wishes to limit her surgical options and wishes to proceed with a lumpectomy of the right breast due to recurrent breast cancer on the right and we have this scheduled for 05/03/19. This will be done by Dr. Milian. PAST MEDICAL HISTORY: Significant for her being diagnosed with breast cancer in 2017 of the right breast, status post chemotherapy 3 rounds as well as radiation to the right breast and she underwent a sentinel node biopsy at that time which was negative. She does have a history of arthritis, recent knee replacement done by Dr. Foss in September 2018 of her left knee. She has a history of hypertension and is controlled on ramipril 10 mg daily. PAST SURGICAL HISTORY: Other surgeries included oophorectomy in 2011 as well as cataract surgery in the past. MEDICATIONS: She is on ramipril 10 mg daily. ALLERGIES: There were no allergies to any medicines. FAMILY HISTORY: Father with history of cardiac disease and hypertension. Mother had breast cancer. She had a sister with leukemia. SOCIAL HISTORY: She is a very active 83-year-old female, looks much younger than her age. 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 She has 3 full- grown children. Previously smoked many years ago, does not smoke now and alcohol intake is 2 to 3 martinis a week. No history of hepatitis. REVIEW OF SYSTEMS: After total knee replacement in September 2018, she had a 17 - pound weight loss. PHYSICAL EXAMINATION GENERAL: She is a well-developed, active, alert, 83-year-old female, in no apparent distress. VITAL SIGNS: On 04/04/19 revealed the following; her height is 5 feet 5 inches , her weight is 153 pounds. Her blood pressure is 160/81. Her pulse is 71 and regular. HEENT: Within normal limits. NECK: Supple. There is no JVD or carotid bruits. LUNGS: Clear throughout. There are no wheezes or rhonchi. HEART: Regular rhythm without a murmur heard. BREASTS: Breast exam as mentioned previously, she has a well-healed scar in upper quadrant of her right breast from previous lumpectomy and recent excisional biopsy. All sutures have been removed. The incision itself from recent surgery was well healed. No signs of infection. There is no evidence of hematoma. Remaining breast exam on the right is negative. Her left left breast was examined and found to be negative. The axilla on the left is negative. ABDOMEN: Soft and nontender. There are no masses. EXTREMITIES: Reveal full range of motion. She has a scar over her left knee from recent knee surgery and knee replacement. IMPRESSION: The patient previously diagnosed with breast cancer in 2017 of the right breast, now returns in 2019 with recurrent breast cancer on the right which is estrogen sensitive. PLAN: The patient is to undergo surgery of the right breast. She will have a lumpectomy of the right breast for recurrent cancer and also to notice recent knee replacement and will receive antibiotics preoperatively in preparation for this. Again, surgery is scheduled for 05/03/19 at [facility] with Dr. Milian. JASON CARABALLO [id number]/[facility] #: [id number] ADITI
[~2019-05-03 10:38] MED LIST changes: +Dexamethasone IV* 4 MG/ML 1 ML (4 MG) ONE; +DiMENhydriNATE IV* 50 MG/ML VIAL IV PUSH PRN; +DiMENhydriNATE IV* 50 MG/ML VIAL ONE; +Famotidine IV* 10 MG/ML 2 ML (20 mg) IV ONE; +Famotidine IV* 10 MG/ML 2 ML (20 mg) ONE; +Ketorolac INJ* 30 MG/ML 1 ML VIAL ONE; -Lidocaine 2% PF * 5 ML VIAL ONE; -Mepivacaine 2% MPF (20 MG/ML)* 20 ML MPF ONE; -Midazolam* 1 MG/ML 2 ML VIAL (2 MG) ONE; +Midazolam* 1 MG/ML 5 ML VIAL (5 MG) ONE; -Ondansetron INJ* 2 MG/ML VIAL IV PRN; +Ondansetron INJ* 2 MG/ML VIAL ONE; -Propofol* 500 MG/50 ML BTL ONE; -ROPIVACAINE 5 MG/ML 30 ML BTL (0.5%) ONE; -ceFAZolin 2 GM PREMIX in ORs 2 GM/50 ML BAG IVPB ONE; +ceFAZolin 2 GM in NS PREMIX(*) 2 GM/100 ML BAG IVPB ONE; +fentaNYL* 50 MCG/ML 2 ML VIAL (100 MCG VIAL) ONE; -oxyCODONE TAB* 5 MG TAB PO PRN
--- NOTE | 2019-05-03 14:01 | OP ---
DATE OF OPERATION: 05/03/19 - [facility] DATE OF : 39 SURGEON: Wisam Vazquez MD HUMAN RESOURCES ADMIN: Zohreh Waldrop NP ANESTHESIA: Local plus MAC. PRE-OP DIAGNOSIS: Status post excisional breast biopsy of the right breast with close margins. POST-OP DIAGNOSIS: Status post excisional breast biopsy of the right breast with close margins. OPERATIVE PROCEDURES: Right breast lumpectomy. ESTIMATED BLOOD LOSS: Approximately 30 cc. INDICATIONS: The patient is an 83-year-old female who developed recurrence of the right breast invasive carcinoma. She underwent an excisional biopsy and at the time of the excisional biopsy, the margins were close to the incision margins and for this reason, the patient is brought in for a lumpectomy, wide excision of the previously removed lump. DESCRIPTION OF PROCEDURE: The patient was taken to the operating room. She was placed in a supine position. After proper identification of patient and site of surgery, the patient was placed under sedation. She was then prepped and draped in the usual sterile fashion. We underwent proper time-out. Under general anesthesia, lidocaine mixed with Marcaine with epinephrine was used to infiltrate the surrounding area of the previous excisional biopsy away from the area of the cavity. After this was done, markings were placed on the skin to include the previous incision. An oval incision of the skin was made that included the skin, subcutaneous tissue. Dissection was then carried around the mass using a 15 blade, removing the entire cavity of the previous biopsy en bloc all the way down to the pectoralis muscle. We proceeded to janiya the margins long lateral, short superior and we removed an extra tissue in the superior margin that the cavity appeared to be too close to it. After this was done, the area was checked for possible residual abnormalities, none were seen. Electrocautery was used to control minor oozing. The wound was then irrigated and because of the large defect, we proceeded to place the Bo- High drain brought out through a separate incision and proceeded to put together the remaining edges of the breast tissue, subcutaneous tissue with interrupted 4-0 Vicryl suture and the skin was closed with a subcuticular 5-0 Monocryl. A light pressure dressing was applied. The ALLEN drain was sutured in place with 5-0 Prolene suture. The patient tolerated the procedure well and she was taken in good condition to recovery room. [id number]/[facility] #: [id number] ADITI
[2019-05-03 15:27] VITALS: BP 164/79
== END | disposition home or self-care (01) ==
LOC: OR 10:38
PROVIDERS: ATTEND Surgery
DX: C50.111 Malignant neoplasm of central portion of right female breast (principal); M19.90 Unspecified osteoarthritis, unspecified site; Z85.3 Personal history of malignant neoplasm of breast; I10 Essential (primary) hypertension
CPT/HCPCS: 88307; J0690; J1100; J1240; J1885; J2250; J2405; J2704; J3010

== ENCOUNTER 2019-11-28 17:29 | Inpatient (IN) | payer MEDICARE ==
[2019-11-28] MEDS ORDERED: NS 0.9% 1000 ML** 1,000 ML IV SCH (18:00)
[2019-11-28] MEDS ORDERED: Acetaminophen TAB* 325 MG PO PRN (18:01)
[2019-11-28] MEDS ORDERED: Morphine INJ* 2 MG/ML 1 ML SYRINGE (TWO MG - NEW SYRINGE VERSION) IV PRN (18:03)
[2019-11-28] MEDS ORDERED: Ondansetron INJ* 2 MG/ML VIAL IV PRN (18:05)
[2019-11-28 18:25] LABS: ABS Lymphocytes 0.8 10^3/ul (1.0-4.8); ABS Monocytes 0.5 10^3/ul (0-0.8); ABS Neutrophils 7.4 10^3/ul (1.5-7.7); Eosinophil % 0.1 %; Hematocrit 39 % (35-47); Hemoglobin 13.7 g/dL (12.0-16.0); Lymphocyte % 8.7 %; Mean Corpuscular HGB Conc 35 g/dL (31-36); Mean Corpuscular Hemoglobin 31 pg (27-31); Mean Corpuscular Volume 90 fL (80-97); Mean Platelet Volume 7.5 fL (7.4-10.4); Platelet Count 392 10^3/uL (150-450); Red Blood Count 4.37 10^6 /uL (3.70-4.87); Red Cell Distribution Width 12 % (10-15); White Blood Count 8.7 10^3/uL (3.5-10.8)
[2019-11-28] MEDS: oxyCODONE TAB* 5 MG TAB PO PRN ×2 (18:26→21:24)
[2019-11-28 18:42] LABS: Albumin 3.7 g/dL (3.2-5.2); Albumin/Globulin Ratio 1.2 (1-3); BUN/Creatinine Ratio 20.9 (8-20); C Reactive Protein 14.51 mg/L (<8.01); Calcium 9.3 mg/dL (8.6-10.3); EGFR Non-African American 84.3 (>60); Globulin 3.1 g/dL (2-4); Potassium 4.2 mmol/L (3.5-5.0); Total Bilirubin 0.5 mg/dL (0.2-1.0); Total Protein 6.8 g/dL (6.4-8.9)
[2019-11-28 18:48] LABS: INR 1.04 (0.82-1.09)
--- NOTE | 2019-11-28 20:19 | HP ---
CC: Dr. Rosy Eller; Dr. Arturo Moore * ADMITTING HISTORY AND PHYSICAL: DATE OF ADMISSION: 11/28/19 HISTORY OF PRESENT ILLNESS: Precious Sigala is an 84-year-old white female. She presents for evaluation of a right pleural effusion, atelectasis, left lung mass, and right-sided lower quadrant abdominal pain. She has a prior history of right-sided breast cancer, hypertension. When I saw her for an annual wellness visit on 11/08/19, she noted that she has had wheezing, cough for a few days, which she thought was recovering and on examination that day, she had some expiratory wheezing, but otherwise no physical signs. She returned to my office on 11/14/19 with worsening cough and right abdominal pain, which was treated symptomatically. She returned on with worsening cough, difficulty catching her breath, loss of appetite. She denied chills or fevers. She had some dyspnea. She was started on azithromycin and a chest x-ray was ordered. This showed right lower lobe airspace opacification, moderate right pleural effusion, elevated right hemidiaphragm. A CT scan of the chest was recommended and on the same day she had a CAT scan, which showed dense consolidation of the right middle lobe, possibility of postobstructive pneumonia, atelectasis in the right lower lobe, left upper lobe lung mass of 2.6 cm, scattered left upper lobe nodules and mediastinal adenopathy concerning for metastatic neoplasm and a large right pleural effusion. She attended my office today to learn about the results of these tests; however, she developed worsening problems with increasing weakness, accelerated wheezing and coughing which was not relieved by guaifenesin and codeine, loss of appetite which has lasted about 2 weeks. She was taking Ensure. She also had right lower quadrant abdominal pain which is constant, she describes 6-7/10 and she is unable to get comfortable. She felt unable to look after herself. She has a cough that is not productive. She has had no hemoptysis. She has had no chest pain. She has had no fever, though she has had some sweats. Her weight has gone down from 161 pounds on 11/14/19 to 155 pounds today. She had normal bowel movements yesterday. She has had some difficulty with urination. PAST MEDICAL HISTORY: Essential hypertension, osteoporosis, history of triple- negative breast cancer and a second more recent one which identified the pathological diagnosis, hyperlipidemia, dysthymia. PAST SURGICAL HISTORY: In 2016, right breast surgery, Dr. Milian. She had a triple-negative breast cancer. In March 2019, she had a new lump in the same breast and had surgical excision by Dr. Milian. This seemed to be a second tumor, which had a different positivity for receptors. She had a second surgery to remove the margins. Other surgeries: She is post bilateral oophorectomy, bilateral cataract extraction, and she has had a left total knee arthroplasty. OBSTETRIC HISTORY: She is 4, para 3. CURRENT MEDICATIONS: 1. Anastrozole 1 mg daily. 2. Azithromycin 250 mg daily for 5 days. 3. Ramipril 10 mg daily. ALLERGIES: No known medication allergies. FAMILY HISTORY: Mother, breast cancer. SOCIAL HISTORY: She has a history of 30-year 1 pack per day tobacco use. She quit 16 years ago. She has a prior history remotely of alcoholism. REVIEW OF SYSTEMS: Weight loss, hoarseness. Respiratory System: Wheezing, shortness of breath, painful breathing. Gastrointestinal System: Some nausea, right lower quadrant abdominal pain. Some generalized weakness, problems with walking and balance, some insomnia. PHYSICAL EXAMINATION VITAL SIGNS: She is 65 inches, 150 pounds. Temperature 97.1 Fahrenheit; blood pressure 175/94, she was anxious; pulse 107; oxygen saturation 96% on room air; respiratory rate 22. She has no cyanosis, anemia, jaundice, clubbing, or lymphadenopathy. RESPIRATORY: She is tachypneic. Her chest expansion was symmetrical. Percussion dull over the right lung base. Breath sounds were absent at the right lung base and diminished at the apex. She had diffuse expiratory wheezes in the left lung field. She was not using accessory muscles of respiration. CARDIOVASCULAR: She had a tachycardia. Pulse was regular, normal character and volume. Venous pressure was not elevated. Heart sounds were normal, but her apex beat was hyperdynamic. No murmurs or added sounds. No pedal edema. Pedal pulses present. ABDOMEN: She has tenderness in the right lower quadrant. No rebound, guarding , or rigidity. She had no masses or organomegaly. Bowel sounds were present. NEUROLOGIC: Nervous System: She is alert and oriented x3. Normal speech. Cranial nerves II through XII were intact. Fundi showed sharp optic discs. NELY. Arms and legs full power, normal tone and coordination. Reflexes were present. ASSESSMENT AND PLAN: 1. History of bronchitis, large right-sided pleural effusion, atelectasis, possible right lung mass, left-sided apical lung mass, and mediastinal adenopathy. This patient presents with high suspicion for lung cancer. She is a former smoker. She also has a history of breast cancer, so it is possible that the effusion and lung masses may be secondary to metastases from breast cancer. She is not coping on her own at home. She requires admission for evaluation, investigation, and symptomatic control. I have ordered lab work, which includes CBC with a diff, CMP, CRP, blood cultures. As she may have postobstructive pneumonia, I have ordered a right-sided therapeutic and diagnostic thoracocentesis. Samples will be sent off for cytology, cell count, Gram stain, culture, protein. I have ordered oxygen therapy as needed. 2. Right-sided lower quadrant pain. This is significant pain at 7/10 and it started a week or two after the chest symptoms. I am concerned that there may be another occult metastasis in her abdomen. There is otherwise a large differential diagnosis, which would include constipation, though she has had bowel movements. I will obtain an abdominal CAT scan to rule out entities such as hydronephrosis or acute abdominal findings. I will treat her pain symptomatically. 3. Essential hypertension. Her hypertension is exacerbated presumably by anxiety and acute illness. I will maintain her on her current dose of ramipril. If her blood pressure does not calm, I will add in some amlodipine. 4. Osteoporosis. We will be careful about her not falling. 5. Resuscitation status: She wishes to be full code. 6. DVT prophylaxis is provided. I spoke to the patient and explained the likelihood of this being a malignancy of some sort either primary lung or from the breast. I also confirmed that she may have an infection. I am waiting for the results of her lab tests to decide whether to start her on parenteral antibiotics. I note she has had 4 days of azithromycin orally. I will likely obtain consultations from Dr. Rosy Eller to determine whether she should have a bronchoscopy and also from Dr. Atruro Moore, who is her oncologist. [id number]/[facility] #: [id number] [facility]
[2019-11-28] MEDS: Heparin VIAL(*) 5000 UNITS/ML VIAL (FIVE THOUSAND) SUBCUT SCH (23:07)
[2019-11-29] MEDS: oxyCODONE TAB* 5 MG TAB PO PRN ×2 (01:45→07:38)
[2019-11-29] MEDS: Heparin VIAL(*) 5000 UNITS/ML VIAL (FIVE THOUSAND) SUBCUT SCH ×3 (05:47→20:15)
[2019-11-29] MEDS: Ramipril CAP* 10 MG PO SCH (07:37)
[2019-11-29] MEDS: Anastrozole (NF) 1 MG TAB PO SCH (07:45)
--- NOTE | 2019-11-29 08:00 | PN ---
Subjective - Subjective Reason for Note: Progress Note History: She is more comfortable with the use of a single injection of morphine sulfate and also oxycodone. The right lower quadrant pain is down to 2/10. Her abdomen feels distended. She has no chest pain, she is dyspneic. She continues to cough, but has had no hemoptysis. She is anorectic and feels weak. Active Problems: Active Problems Atelectasis of right lung (Acute) J98.11 Dyspnea (Acute) R06.00 History of right breast cancer (Acute) Z85.3 Mass of upper lobe of left lung (Acute) R91.8 Pleural effusion, right (Acute) J90 Right lower quadrant abdominal pain (Acute) Current Medications: Current Medications Acetaminophen (Tylenol Tab*) 650 mg PO Q4H PRN PRN Reason: PAIN - MILD Anastrozole (Arimidex (Nf)) 1 mg PO DAILY [facility] Last Admin: 11/29/19 07:45 Dose: Not Given Heparin Sodium (Porcine) (Heparin Vial(*)) 5,000 units SUBCUT Q8HR [facility] Last Admin: 11/29/19 05:47 Dose: Not Given Sodium Chloride (Ns 0.9% 1000 Ml) 1,000 mls @ 75 mls/hr IV PER RATE [facility] Last Admin: 11/28/19 21:26 Dose: 75 mls/hr Morphine Sulfate (Morphine Inj (Syringe))*) 2 mg IV Q4H PRN PRN Reason: PAIN - MILD Last Admin: 11/29/19 02:37 Dose: 2 mg Ondansetron HCl (Zofran Inj*) 4 mg IV Q8H PRN PRN Reason: NAUSEA Oxycodone HCl (Roxycodone Tab*) 5 mg PO Q4H PRN PRN Reason: PAIN - MODERATE Last Admin: 11/29/19 07:38 Dose: 5 mg Ramipril (Altace Cap*) 10 mg PO DAILY [facility] Last Admin: 11/29/19 07:37 Dose: 10 mg Home Medications: Home Medications Medication Instructions Recorded Confirmed Type Ramipril CAP* [Altace CAP*] 10 mg PO BEDTIME 10/08/18 11/28/19 History C,E,Zinc,Copper 11/Crgdl9r/Lut 1 each PO QAM 03/22/19 11/28/19 History [Ocuvite Adult 50 Plus Softgel] Oxyquinoline/Sod.lauryl Sulfat 1 applic VAGINAL SEE INSTRUCTIONS 03/22/19 History [Trimo-Naqvi Jelly] Allergies: Allergies Allergy/AdvReac Type Severity Reaction Status Date / Time No Known Allergies Allergy Verified 11/25/19 16:40 Objective - Vital Signs Vital Signs: Vital Signs 11/28/19 11/28/19 11/28/19 18:26 18:33 19:06 Temperature 98.2 F Pulse Rate 79 Respiratory 18 18 18 Rate Blood Pressure 132/71 (mmHg) O2 Sat by Pulse 95 Oximetry 11/28/19 11/28/19 11/28/19 19:08 21:24 23:01 Temperature 98.2 F Pulse Rate 101 Respiratory 18 16 16 Rate Blood Pressure 163/92 (mmHg) O2 Sat by Pulse 91 Oximetry 11/28/19 11/28/19 11/29/19 23:15 23:56 00:00 Temperature 97.9 F Pulse Rate 93 Respiratory 16 16 Rate Blood Pressure 152/89 (mmHg) O2 Sat by Pulse 90 94 Oximetry 11/29/19 11/29/19 11/29/19 01:45 02:37 03:28 Temperature 96.7 F Pulse Rate 95 Respiratory 15 18 20 Rate Blood Pressure 153/98 (mmHg) O2 Sat by Pulse 2 Oximetry 11/29/19 11/29/19 11/29/19 03:37 03:45 07:38 Temperature Pulse Rate Respiratory 20 20 18 Rate Blood Pressure (mmHg) O2 Sat by Pulse Oximetry - Intake and Output Intake and Output: Intake & Output 11/26/19 11/27/19 11/28/19 11/29/19 11:59 11:59 11:59 11:59 Intake Total 80 Balance 80 Weight 154 lb 3.2 oz Intake: Oral 80 Other: # Voids 2 ADLs: Meal Record Start: 11/28/19 17: 39 Freq: DAILY@0900,1400,1800 Status: Active Protocol: Created 11/28/19 17:39 System (Rec: 11/28/19 17:39 System [id number]) Document 11/28/19 18:00 [id number] (Rec: 11/28/19 18:35 [id number] [id number]) Intake and Output Start: 11/28/19 17: 39 Freq: DAILY@0600,1400,2200 Status: Active Protocol: Created 11/28/19 17:39 System (Rec: 11/28/19 17:39 System MED-C15) Document 11/28/19 22:00 [id number] (Rec: 11/28/19 23:53 [id number] MED-C07) Document 11/29/19 05:36 [id number] (Rec: 11/29/19 05:37 [id number] MED-C07) - Physical Exam General Physical Exam Comment: She is in no acute distress and is warm and well perfused. She is conversational and able to sit forward independently in the bed. General: No Cyanosis, No Anemia, No Jaundice, No Lymphadenopathy, No Clubbing Lungs and Chest: Yes: Chest Expansion Full, Chest Expansion Symetrica, Wheezes - scattered left lung wheeze, Respiratory Distress - mild with tachypnea. No: Percussion Note Resonant - dull right lung, Vessicular Breath Sounds - absent breath sounds right base, diminished throughout right lung, Crackles, Use of Accessory Muscles Heart Rate and Rhythm: Regular Additional Cardiovascular: Yes: Normal Heart Sounds. No: Heart Murmur, Pedal Edema Abdominal Exam: Yes: Distention - mild , Soft, Abdominal Tenderness - mild right lower quadrant, Bowel Sounds Present. No: Rigidity, Abdominal Mass, Hepatomegaly, Guarding, Rebound Tenderness Results - Results Lab Results: Laboratory Results - last 24 hr 11/28/19 11/28/19 11/28/19 18:09 18:09 18:23 WBC 8.7 RBC 4.37 Hgb 13.7 Hct 39 MCV 90 MCH 31 MCHC 35 RDW 12 Plt Count 392 MPV 7.5 Neut % (Auto) 85.3 Lymph % (Auto) 8.7 [place] % (Auto) 5.5 Eos % (Auto) 0.1 Baso % (Auto) 0.4 Absolute Neuts (auto) 7.4 Absolute Lymphs (auto) 0.8 L Absolute Monos (auto) 0.5 Absolute Eos (auto) 0.0 Absolute Basos (auto) 0.0 Absolute Nucleated RBC 0.0 Nucleated RBC % 0.0 INR (Anticoag Therapy) 1.04 Sodium 124 L Potassium 4.2 Chloride 89 L Carbon Dioxide 25 Anion Gap 10 BUN 14 Creatinine 0.67 Est GFR ( Amer) 102.0 Est GFR (Non-Af Amer) 84.3 BUN/Creatinine Ratio 20.9 H Glucose 121 H Calcium 9.3 Total Bilirubin 0.50 AST 24 ALT 8 Alkaline Phosphatase 75 C-Reactive Protein 14.51 H Total Protein 6.8 Albumin 3.7 Globulin 3.1 Albumin/Globulin Ratio 1.2 Radiology Results: Patient Name: RAJINDER SIGALA Medical Record#: [id number] Ordering Physician: Brad Cabrera MD Acct.#: [id number] : 1935 Age: 84 Sex: F Location: [address] [place] [address] Exam Date: 11/28/191755 ADM Status: ADM Yeimi Order Information: CT ABD/PEL W/O Accession Number: [id number] CPT: 43394 PROCEDURE INFORMATION: Exam: CT Abdomen And Pelvis Without Contrast Exam date and time: 11/28/2019 8:11 PM Age: 84 years old Clinical indication: Abdominal pain; Additional info: Right lower quadrant abdominal pain TECHNIQUE: Imaging protocol: Computed tomography of the abdomen and pelvis without contrast. Radiation optimization: All CT scans at this facility use at least one of these dose optimization techniques: automated exposure control; mA and/or kV adjustment per patient size (includes targeted exams where dose is matched to clinical indication); or iterative reconstruction. COMPARISON: No relevant prior studies available. FINDINGS: Lungs: Multiple pulmonary nodules on the left including superior lingular measuring 0.7 cm (series 5, image 7) and posterior superior lingular measuring 0.8 cm (series 5, image 13). Compressive atelectasis entire right lower and middle lobes. Multiple mucous plugs throughout the right middle and lower lobe bronchi. Pleural space: Large right pleural effusion. No left effusion. Liver: Normal. No mass. Gallbladder and bile ducts: Normal. No calcified stones. No ductal dilation. Pancreas: Normal. No ductal dilation. Spleen: Normal. No splenomegaly. Adrenals: Normal. No mass. Kidneys and ureters: No renal calculi or pelvocaliectasis. Stomach and bowel: Incompletely distended grossly normal stomach. Normal caliber small bowel. No colonic masses or segmental wall thickening. Appendix: Nonvisualized appendix with no secondary findings to suggest appendicitis. Intraperitoneal space: No ascites, pneumoperitoneum, or hemorrhage. Vasculature: The aorta demonstrates mild atherosclerotic calcification. Lymph nodes: Normal. No enlarged lymph nodes. Bladder: Thin-walled bladder with no focal nodularity, perivesicular stranding, or calcifications. Reproductive: Uterus and ovaries are normal.There is a pelvic pessary. Bones/joints: The spine demonstrates mild degenerative changes at multiple levels. Mild bilateral hip primary osteoarthritis. No acute fractures. No suspicious bone lesions. Soft tissues: Partially visualized right breast postsurgical scar measuring 2.8 cm (series 3, image 1). IMPRESSION: 1. No CT findings to correlate with patient's symptomatology. Specifically no [facility] Patient Name:RAJINDER SIGALA MR: [id number] : 1935 appendicitis. 2. Partially visualized findings of known metastatic disease. Dictated and Authenticated by: Syeda Olivera MD 11/28/2019 8:54 PM Eastern Time ([place] and [place]) EKG Report: Sinus rhythm with poor R wave progression. Unchanged compared 06/05/2012 Assessment - Problem List Assessment: Patient Problems Atelectasis of right lung (Acute) Dyspnea (Acute) History of right breast cancer (Acute) Mass of upper lobe of left lung (Acute) Pleural effusion, right (Acute) Right lower quadrant abdominal pain (Acute) DVT prophylaxis (Chronic) Full code status (Chronic) Hypertension (Chronic) Status post knee replacement (Chronic) Plan: Atelectasis of right lung (Acute) Dyspnea (Acute)History of right breast cancer (Acute)Mass of upper lobe of left lung (Acute)Pleural effusion, right (Acute) She is due for a diagnostic and therapeutic thoracocentesis today. I will ask for Dr. Eller to consult re: possibility of bronhoscopy. Right lower quadrant abdominal pain (Acute) There was no pathology seen on the CT scan. This likely due to constipation. DVT prophylaxis (Chronic) Full code status (Chronic) Hypertension (Chronic) Her BP was elevated at entry, but it is improving with pain control Status post knee replacement (Chronic) I discussed the possibilities with Ms. Sigala. She is aware this is likely cancer and that it could either be a new primary lung cancer affecting both lungs and lymph nodes, or metastatic breast cancer. She asked about oncological care and also hospicecare. I explained we require a tissue diagnosis and an oncological opinion before making further management decisions. She will stay overnight after the thoracocentesis to ensure pain control and other symptoms control.
--- NOTE | 2019-11-29 11:00 | CONS ---
PULMONARY CONSULTATION REPORT: DATE OF CONSULT: 11/29/19 CONSULTATION REQUESTED BY: Dr. Brad Cabrear. HISTORY OF PRESENT ILLNESS: The patient is an 84-year-old female with a history of triple negative breast cancer. The patient presented for evaluation of right lower quadrant abdominal pain. The patient was seen by her primary care physician, Dr. Cabrera for annual wellness visit on 11/08/19, at which time she was noted to have wheezing and cough for few days. She returned back on with worsening cough, right abdominal pain, which was treated symptomatically. She followed up on 11/25/19, was noted to have worsening of the cough, shortness of breath. She also has been having decreased appetite. She has not had any fevers or chills. She was given azithromycin and chest x- ray was ordered at that time. The patient was noted to have right lower lobe airspace opacification and moderate sized right pleural effusion. The patient had CT scan of the chest for further evaluation on the same day. I have personally reviewed the chest x-ray and CT scan of the chest. The patient noted to have [id number] right pleural effusion and evidence of ground- glass opacities above it. The patient also has volume loss and atelectasis of the right lower lobe. The patient noted to have dense consolidation in right middle lobe. The patient noted to had 2.6 cm mass in the left upper lobe adjacent to the mediastinum. She also noted to have smaller nodules measuring 2.9 cm in the left lung. The patient subsequently was sent to the hospital for admission. The patient was started on antibiotics for postobstructive pneumonia. The patient has received antibiotics recently for possible postobstructive pneumonia. Pulmonary consultation was requested for evaluation of abnormal CT findings and for possible thoracentesis. The patient was seen and examined at bedside. The patient reports having shortness of breath. The patient also reports having productive cough. The patient also reports cough that is nonproductive. Denies hemoptysis. Denies chest pain. She has been having abdominal pain. Denies fevers, has some night sweats. The patient reports weight loss from 161 pounds on 11/14/19 to 155 pounds on admission. PAST MEDICAL HISTORY: Hypertension, osteoporosis, triple negative breast cancer. PAST SURGICAL HISTORY: Right breast surgery 2016. In March 2019, she had a new lump in right breast, had surgical excision, which appeared to be a second tumor. She also had bilateral oophorectomy, cataract extraction, and total knee arthroplasty. MEDICATIONS: 1. Anastrozole. 2. Azithromycin. 3. Ramipril. ALLERGIES: No known drug allergies. FAMILY HISTORY: Mother with breast cancer. SOCIAL HISTORY: [id number]-odpq smoking history, quit 16 years ago. Remote history of alcoholism. No drug abuse. REVIEW OF SYSTEMS: All systems reviewed as per HPI PHYSICAL EXAM: The patient in bed in no apparent distress. Vital Signs: Temperature 98.2, pulse 93 beats per minute, respiratory rate 18 per minute, O2 sat 96% on 2 L, blood pressure 154/80. HEENT: Pupils equal react to light. Mucous membranes moist. Lungs: Diminished air entry on right side. No wheeze or crackles. Cardiovascular: S1, S2 present. Abdomen: Soft, nontender, nondistended. Bowel sounds present. Extremities: Normal range of motion. Skin: No rash. Neuro: Alert, awake, and oriented x3. No focal deficits. DIAGNOSTIC STUDIES/LAB DATA: WBC count 8.7, hemoglobin 13.7, hematocrit 39, platelet count 392. Sodium 124, potassium 4.2, chloride 89, bicarb 25, BUN 14, creatinine 0.67, glucose 121, CRP slightly elevated at 14. Chest x-ray and CT scan of the chest as described above in HPI. IMPRESSION AND RECOMMENDATIONS: 84-year-old female with recurrence of breast cancer now with evidence of large right pleural effusion with associated atelectasis and nodular opacities in the left lung. The patient also with dense consolidation in the right middle lobe and ground-glass opacities in the right upper lobe. Findings concerning for possible metastatic disease to the lung from underlying breast cancer. Will perform thoracentesis for fluid removal and further diagnostic and therapeutic reasons. Procedure was discussed in detail with the patient. Associated risk including risk of pneumothorax was discussed. If fluid not diagnostic for malignancy, we will need bronchoscopy. Thank you for allowing me to participate in care of the patient. Above was discussed with the patient and Dr. Brad Cabrera. [id number]/[facility] #: [id number] ADITI
[2019-11-29 11:32] LABS: Body Fluid Source Pleural Fluid
--- NOTE | 2019-11-29 12:09 | BRIEFOPN ---
Brief Operative/Procedure Note - Operation Details Pre-Op Diagnosis: large rt pleural effusion Post-Op Diagnosis: large right effusion Procedures: Thoracentesis with U/S guidance on right side Surgeon(s)/Proceduralists: Rafita Anesthesia: Local with 1% lidocaine Estimated Blood Loss: None Findings: 1600cc of dark yellow fluid Specimen(s)/Culture(s) Description: Cytology, microbiology, hematology, biochem Complications: None
[2019-11-29 12:15] LABS: Body Fluid Mono 35 %; Body Fluid Other Cells 18
[2019-11-29] MEDS: Polyethylene Glycol 3350* 17 GM PACKET PO PRN (12:43)
[2019-11-29] MEDS: Docusate CAP* 100 MG PO PRN (12:43)
--- NOTE | 2019-11-29 15:02 | PRO ---
THORACENTESIS REPORT: DATE OF PROCEDURE: 11/29/19 PROCEDURE PERFORMED: Ultrasound-guided thoracentesis on the right side. PREPROCEDURAL DIAGNOSIS: Large right pleural effusion. POSTPROCEDURAL DIAGNOSIS: Large right pleural effusion. ANESTHESIA: Local anesthesia with 1% lidocaine 5 cc. DESCRIPTION OF PROCEDURE: Informed consent was obtained from the patient prior to the procedure after all the risks and benefits were thoroughly explained. The patient with CT scan of the chest recently showing large right pleural effusion with associated atelectasis and evidence of some postobstructive pneumonia and lung nodules. Appropriate time-out was performed prior to the procedure. The patient was sitting up and leaning forward during the procedure. A portable ultrasound was utilized at the bedside to localize large amount of right effusion. Strict aseptic precautions and barrier techniques were utilized. The area was disinfected with chlorhexidine. A sterile drape was applied. 1% lidocaine was instilled subdermally subcutaneously down into the pleural space taking precautions. A #11 scalpel blade was used to make a stab incision to facilitate passage of 8-Turkish CareFusion thoracentesis catheter. 8-Turkish thoracentesis catheter was subsequently inserted under manual suction taking precautions. The catheter was left in place and the needle was removed. 1600 mL of dark yellow fluid was removed under manual suction. The patient tolerated the procedure well. Catheter was then removed and sterile Band-Aid was applied. Fluid was sent to the lab for cytological and biochemical examination. [id number]/[facility] #: [id number] MTDD
--- NOTE | 2019-11-29 21:57 | CONS ---
CC: Dr. Brad Carbera; Dr. Rosy Eller; Dr. Arturo Moore * MEDICAL ONCOLOGY CONSULTATION NOTE: DATE OF ADMISSION: 11/28/19. DATE OF CONSULTATION: 11/29/19. REASON FOR CONSULTATION: Increased shortness of breath with pleural effusion, adenopathy, and lung masses. HISTORY OF PRESENT ILLNESS: Precious Sigala is an 84-year-old white female , who is well known to our office. She has been followed since 2016. At that point, she had triple-negative breast cancer with [place] 8/9. She underwent a lumpectomy with negative margins. [place] lymph node biopsies were negative x2. This was then treated with Taxotere and Cytoxan adjuvant chemotherapy for 4 cycles in May of 2017. This was a [id number] breast cancer. She subsequently received radiation therapy to the right breast completing in July of 2017. She subsequently developed some fullness at the site in the right breast in the spring. Ultrasound and mammography were indeterminant. Fine-needle aspiration was suspicious. On 03/29/19, she underwent a lumpectomy, it has been a 2.3 cm [place] 9/9 invasive ductal breast cancer. ER was 1 to 2+ positive in 20% of the cells, tumor was AL and HER2/nancy negative. There were positive margins and a repeat lumpectomy was performed on 05/03/19 with no further cancer seen. Although, this was a tumor with a high Oncotype DX score. She elected not to receive further chemotherapy and instead was started on Arimidex. She has been tolerating the Arimidex well and has had no significant abnormalities on breast exam since starting on Arimidex. The patient was seen for an annual physical exam by Dr. Brad Cabrera on 11/08/19. At that time, she has had a week or two of cough and wheezing. She was felt most likely to have bronchitis or an allergic reaction. Her symptoms worsened and she returned to the office and was seen by advanced practice practitioner on 11/14/19. At that time, she was also having some right abdominal pain in the lower quadrant and worsening cough. These symptoms continued to worsen. She was started on azithromycin along with a codeine-based cough syrup. Symptoms continued to worsen and a chest x-ray was obtained. This revealed a right lower airspace opacification and right pleural effusion and an elevated hemidiaphragm. CT scan of the chest was obtained, which revealed consolidation in the right middle lobe with a question of postobstructive pneumonia. Left upper lobe mass of 2.6 cm along with several smaller left upper lobe lung nodules up to 1 cm were noted. She had very significant mediastinal adenopathy including subcarinal and AT window lymph nodes. A large right pleural effusion was also noted. She presented back to Dr. Cabrera's office on 11/28/19, for results of these tests. She had developed increasing weakness, shortness of breath, and coughing, and decision was made to admit her to the hospital for further workup. Right lower quadrant abdominal pain was significant and potentially related to constipation and she had been taking a codeine-based cough syrup. She has lost a modest amount of weight recently. PAST MEDICAL HISTORY: Otherwise significant for hypertension, osteoporosis, hyperlipidemia. Status post 3 breast surgeries as discussed above, status post bilateral oophorectomy, bilateral cataract extractions, and left total knee. MEDICATIONS: At the time of admission included: 1. Anastrozole 1 mg daily. 2. Ramipril 10 mg daily. 3. Recently on azithromycin. ALLERGIES: None. FAMILY HISTORY: Mother with breast cancer. No other family history of malignancies. SOCIAL HISTORY: The patient smoked 1 pack per day of cigarettes for 30 years. She reports quitting in mid 1990s about 25 years ago. History of significant alcohol use/abuse in the past, but none recently. She currently lives alone. REVIEW OF SYSTEMS: About a 6- to 10-pound weight loss recently. Appetite has been poor, but no nausea or vomiting, constipation likely from narcotics. Respiratory symptoms as discussed above. Denies any headaches, visual complaints, tingling, numbness or weakness in her extremities. Overall weakness is present. No significant urinary symptoms. No major new arthritic complaints. PHYSICAL EXAM: An 84-year-old female in no acute distress. Vital signs: Afebrile, blood pressure is slightly elevated at 160/90, pulse 100 to 110, O2 saturation 96% on room air. HEENT: PERRLA, EOMI. No erythema or exudates. No scleral icterus. No palpable cervical, supraclavicular or axillary adenopathy. Lungs: Decreased breath sounds on the right. Occasional wheezes. Heart: Tachycardic without murmurs, rubs or gallops. Abdomen: Soft, nontender without masses or organomegaly. Extremities: No edema. DIAGNOSTIC STUDIES/LAB DATA: Radiographic studies are as discussed above. Laboratory studies include CBC with a white count of 8700, H and H of 39/13.7. Platelet count 392,000. Normal differential. Chemistry studies: Sodium 124, potassium 4.2, chloride 89, bicarb 25, BUN 14, creatinine 0.67, glucose 121. LFTs are within normal limits. C-reactive protein is mildly elevated at 14.5. CT scan of the abdomen and pelvis was obtained on the day of admission. This did not reveal any significant abnormalities in the abdomen. Previously noted findings in the chest including large pleural effusion, lung nodules were noted. IMPRESSION AND PLAN: An 84-year-old female with history of a high-grade lymph node negative breast cancer in 2017 with second breast cancer on the same side in 2019, again high-grade first triple-negative, second ER positive, AL/HER-2/ nancy negative and only mildly ER positive. She had a very high Oncotype DX score that time giving her high likelihood of recurrence. However, reviewing the CT scan of the chest, this appears more likely to be a primary lung cancer than metastatic breast cancer given the over 2 cm lung nodule, which is somewhat speculated, multiple smaller lung nodules and significant mediastinal adenopathy with contralateral pleural effusion. The patient is scheduled for an ultrasound-guided thoracentesis by Dr. Rosy Eller of Pulmonary. This is both for diagnostic and therapeutic reasons. The patient and I had a significant discussion regarding the further treatment options. She is not sure if this turns out to be malignant as it almost certainly is, that she would want any further therapy and she may just opt for hospice. We did discuss that if this is a lung cancer, there is a small chance that this could be a lung cancer with specific mutations that could be targeted. This would be without needing the use of chemotherapy. It is more likely if this is a lung cancer that it will be one without specific targets and further treatment would require chemotherapy. It is also possible that this represents metastatic breast cancer either hormone - receptor positive or not. If hormone-receptor positive one could certainly change to a more aggressive hormonal therapy such as Ibrance with Faslodex, or one could also consider chemotherapy at this time for either hormone-receptor positive or negative breast cancer. Hopefully, she will have some significant improvement in terms of breathing followed in the therapeutic portion of her thoracocentesis. We will have further discussions once we have full pathology back, which I would expect not to be until next week. ADDENDUM: Pathology is reviewed with Dr. Evans. There are clearly malignant cells present when the slides were reviewed with him at approximately 1500 hours on 11/29/19. It is not clear at this time whether this would represent a lung cancer or a breast cancer but clearly represents adenocarcinoma , which appears high grade. [id number] #: [id number] MTDD
[2019-11-30 05:39] LABS: ABS Basophils 0.1 10^3/ul (0-0.2); ABS Eosinophils 0.1 10^3/ul (0-0.6); ABS Lymphocytes 0.7 10^3/ul (1.0-4.8); ABS Monocytes 0.5 10^3/ul (0-0.8); ABS Neutrophils 3.8 10^3/ul (1.5-7.7); Eosinophil % 2.2 %; Hematocrit 36 % (35-47); Hemoglobin 12.4 g/dL (12.0-16.0); Mean Corpuscular HGB Conc 35 g/dL (31-36); Mean Corpuscular Hemoglobin 32 pg (27-31); Mean Corpuscular Volume 90 fL (80-97); Mean Platelet Volume 7.4 fL (7.4-10.4); Nucleated Red Blood Cells % 0.1; Platelet Count 328 10^3/uL (150-450); Red Blood Count 3.94 10^6 /uL (3.70-4.87); Red Cell Distribution Width 12 % (10-15); White Blood Count 5.1 10^3/uL (3.5-10.8)
[2019-11-30 05:54] LABS: BUN/Creatinine Ratio 18.8 (8-20); Calcium 8.4 mg/dL (8.6-10.3); EGFR African American 107.5 (>60); EGFR Non-African American 88.8 (>60)
[2019-11-30] MEDS: Heparin VIAL(*) 5000 UNITS/ML VIAL (FIVE THOUSAND) SUBCUT SCH (06:04)
[2019-11-30] MEDS: Polyethylene Glycol 3350* 17 GM PACKET PO PRN (07:36)
[2019-11-30] MEDS: Anastrozole (NF) 1 MG TAB PO SCH (07:36)
[2019-11-30] MEDS: Docusate CAP* 100 MG PO PRN (07:36)
[2019-11-30] MEDS: Ramipril CAP* 10 MG PO SCH (07:36)
--- NOTE | 2019-11-30 10:51 | PN ---
Subjective - Subjective Reason for Note: Discharge Note History: Discharge progress note See - dictated discharge summary for details. She is feeling much better after the thoracocentesis 1.6 liters yesterday. The pain in her right lower quadrant is improved. She is eating and drinking She has not had a bowel movement this admission Active Problems: Active Problems Adenocarcinoma (Acute) C80.1 Atelectasis of right lung (Acute) J98.11 Dyspnea (Acute) R06.00 History of right breast cancer (Acute) Z85.3 Mass of upper lobe of left lung (Acute) R91.8 Pleural effusion, right (Acute) J90 Right lower quadrant abdominal pain (Acute) Current Medications: Current Medications Acetaminophen (Tylenol Tab*) 650 mg PO Q4H PRN PRN Reason: PAIN - MILD Anastrozole (Arimidex (Nf)) 1 mg PO DAILY [facility] Last Admin: 11/30/19 07:36 Dose: Not Given Docusate Sodium (Colace Cap*) 100 mg PO BID PRN PRN Reason: CONSTIPATION Last Admin: 11/30/19 07:36 Dose: 100 mg Heparin Sodium (Porcine) (Heparin Vial(*)) 5,000 units SUBCUT Q8HR [facility] Last Admin: 11/30/19 06:04 Dose: Not Given Morphine Sulfate (Morphine Inj (Syringe))*) 2 mg IV Q4H PRN PRN Reason: PAIN - SEVERE Last Admin: 11/29/19 02:37 Dose: 2 mg Ondansetron HCl (Zofran Inj*) 4 mg IV Q8H PRN PRN Reason: NAUSEA Oxycodone HCl (Roxycodone Tab*) 5 mg PO Q4H PRN PRN Reason: PAIN - MODERATE Last Admin: 11/29/19 07:38 Dose: 5 mg Polyethylene Glycol/Electrolytes (Miralax*) 17 gm PO DAILY PRN PRN Reason: CONSTIPATION Last Admin: 11/30/19 07:36 Dose: 17 gm Ramipril (Altace Cap*) 10 mg PO DAILY [facility] Last Admin: 11/30/19 07:36 Dose: 10 mg Home Medications: Home Medications Medication Instructions Recorded Confirmed Type Ramipril CAP* [Altace CAP*] 10 mg PO BEDTIME 10/08/18 11/28/19 History C,E,Zinc,Copper 11/Tltkf9y/Lut 1 each PO QAM 03/22/19 11/28/19 History [Ocuvite Adult 50 Plus Softgel] Oxyquinoline/Sod.lauryl Sulfat 1 applic VAGINAL SEE INSTRUCTIONS 03/22/19 History [Trimo-Naqvi Jelly] Allergies: Allergies Allergy/AdvReac Type Severity Reaction Status Date / Time No Known Allergies Allergy Verified 11/25/19 16:40 Objective - Vital Signs Vital Signs: Vital Signs 11/29/19 11/29/19 11/29/19 11:15 15:15 15:56 Temperature 97.6 F 97.8 F Pulse Rate 89 104 Respiratory 20 18 Rate Blood Pressure 136/72 151/92 (mmHg) O2 Sat by Pulse 95 95 95 Oximetry 11/29/19 11/29/19 11/29/19 19:21 19:26 23:51 Temperature 98 F 97.6 F Pulse Rate 91 79 Respiratory 16 18 16 Rate Blood Pressure 145/81 141/77 (mmHg) O2 Sat by Pulse 98 96 Oximetry 11/30/19 11/30/19 11/30/19 00:00 02:31 07:15 Temperature 97 F 98.2 F Pulse Rate 84 95 Respiratory 16 18 Rate Blood Pressure 127/69 126/80 (mmHg) O2 Sat by Pulse 96 96 97 Oximetry 11/30/19 07:46 Temperature Pulse Rate Respiratory 18 Rate Blood Pressure (mmHg) O2 Sat by Pulse 97 Oximetry - Intake and Output Intake and Output: Intake & Output 11/27/19 11/28/19 11/29/19 11/30/19 11:59 11:59 11:59 11:59 Intake Total 400 2230 Balance 400 2230 Weight 154 lb 3.2 oz Intake: IV Fluids 590 NS (0.9%) 590 Oral 400 1640 Other: Estimated Void Medium # Bowel Movements 0 # Voids 2 2 ADLs: Meal Record Start: 11/28/19 17: 39 Freq: DAILY@0900,1400,1800 Status: Active Protocol: Created 11/28/19 17:39 System (Rec: 11/28/19 17:39 System MED-C15) Document 11/28/19 18:00 [id number] (Rec: 11/28/19 18:35 [id number] MED-C15) Document 11/29/19 08:40 [id number] (Rec: 11/29/19 08:40 [id number] MED-C11) Document 11/29/19 14:00 [id number] (Rec: 11/29/19 14:40 [id number] MED-C09) Document 11/29/19 18:00 [id number] (Rec: 11/29/19 19:00 [id number] MED-C09) Document 11/30/19 09:00 [id number] (Rec: 11/30/19 09:11 [id number] MED-C11) Intake and Output Start: 11/28/19 17: 39 Freq: DAILY@0600,1400,2200 Status: Active Protocol: Created 11/28/19 17:39 System (Rec: 11/28/19 17:39 System MED-C15) Document 11/28/19 22:00 [id number] (Rec: 11/28/19 23:53 [id number] MED-C07) Document 11/29/19 05:36 [id number] (Rec: 11/29/19 05:37 [id number] MED-C07) Document 11/29/19 14:00 [id number] (Rec: 11/29/19 14:23 [id number] MED-C09) Document 11/29/19 22:21 [id number] (Rec: 11/29/19 22:21 [id number] MED-M04) Document 11/30/19 05:47 [id number] (Rec: 11/30/19 06:06 [id number] MED-C09) - Physical Exam General Physical Exam Comment: She was able to sit up on the side of the bed, stand up and walk with the aid of the walker with confidence 1/[address] across the méndez and back. General: No Cyanosis, No Anemia, No Jaundice, No Clubbing Lungs and Chest: Yes: Chest Expansion Full, Chest Expansion Symetrica. No: Percussion Note Resonant - dull right base, Vessicular Breath Sounds - decreased air entry right base - much improved, Crackles, Wheezes, Respiratory Distress, Use of Accessory Muscles Heart Rate and Rhythm: Regular Additional Cardiovascular: Yes: Normal Heart Sounds. No: Heart Murmur, Pedal Edema Abdominal Exam: Yes: Soft. No: Distention, Abdominal Tenderness, Other Results - Results Lab Results: Laboratory Results - last 24 hr 11/29/19 11/30/19 11/30/19 10:15 05:19 05:19 WBC 5.1 RBC 3.94 Hgb 12.4 Hct 36 MCV 90 MCH 32 H MCHC 35 RDW 12 Plt Count 328 MPV 7.4 Neut % (Auto) 73.6 Lymph % (Auto) 13.0 [place] % (Auto) 10.1 Eos % (Auto) 2.2 Baso % (Auto) 1.1 Absolute Neuts (auto) 3.8 Absolute Lymphs (auto) 0.7 L Absolute Monos (auto) 0.5 Absolute Eos (auto) 0.1 Absolute Basos (auto) 0.1 Absolute Nucleated RBC 0.0 Nucleated RBC % 0.1 Sodium 125 L Potassium 4.0 Chloride 91 L Carbon Dioxide 27 Anion Gap 7 BUN 12 Creatinine 0.64 Est GFR ( Amer) 107.5 Est GFR (Non-Af Amer) 88.8 BUN/Creatinine Ratio 18.8 Glucose 85 Calcium 8.4 L Fluid Source Pleural fluid Fluid Volume 10.0 Fluid Color Yellow Fluid Appearance Cloudy Fluid WBC 1284 Fluid RBC 1002 Fluid Tot Cell Count 100 Fluid Neutrophils 2 Fluid Lymphocytes 63 Fluid Monocytes 35 Fluid Other Cells 18 Fluid Cell Count Rvw By Fluid Comment Assessment - Problem List Assessment: Patient Problems Adenocarcinoma (Acute) Atelectasis of right lung (Acute) Dyspnea (Acute) History of right breast cancer (Acute) Mass of upper lobe of left lung (Acute) Pleural effusion, right (Acute) Right lower quadrant abdominal pain (Acute) DVT prophylaxis (Chronic) Full code status (Chronic) Hypertension (Chronic) Status post knee replacement (Chronic) Plan: I arrived during her consultation with Dr. Moore. He told her that this is an adenocarcinoma - it may be lung (most likely) or secondary breast. The final results are pending. She is feeling much better. Her daughter - Sofi Zuniga arrived during the visit. Ms Zuniga is a RN and works with the elderly. We have decided she is ready for discharge home. We will manage her constipation. She doesn't require antibacterials. She will follow up with Dr. Moore mid-week.
[2019-11-30 11:47] VITALS: BP 123/69
--- NOTE | 2019-11-30 13:45 | DS ---
CC: Dr. Arturo Moore; Dr. Rosy Eller * DISCHARGE SUMMARY: DATE OF ADMISSION: 11/28/19 DATE OF DISCHARGE: 11/30/19 DISCHARGE DIAGNOSES: 1. Adenocarcinoma and pleural effusion, unknown source, the lung and breast are the most likely. 2. Right-sided large pleural effusion. 3. Atelectasis right middle and lower lobe of the lung. 4. A 2.6 cm mass left upper lobe of the lung. 5. Mediastinal lymphadenopathy. 6. Right lower quadrant pain. 7. Comorbidities of hypertension, anorexia, constipation. SECONDARY DIAGNOSIS: History of breast cancer x2. CONDITION ON DISCHARGE: Fair. DISPOSITION: Home. HISTORY: Precious Sigala is an 84-year-old white female. Her presentation is documented in my admitting history and physical. In short, she had had what seemed to be a bronchitis, this did not improve. She had a chest x -ray that showed a large right-sided pleural effusion and this was confirmed by CT scan, which showed as an outpatient an atelectasis of the lower lobes of the right lung, large pleural effusion and a left upper lobe mass and mediastinal adenopathy. She was acutely dyspneic and weak. I admitted her directly to the hospital for evaluation and pain control. PHYSICAL EXAMINATION AT PRESENTATION: She is 150 pounds, 65 inches tall. Temperature 97.1, blood pressure 175/94, pulse 107. She was anxious. Oxygen saturation 96% on room air, respiratory rate 22. Chest expansion was symmetrical. Percussion note was dull over the right lung. Breath sounds are absent in the right lung and diminished at the apex. She had diffuse expiratory wheezes left lung field. Otherwise, her abdomen showed some tenderness to the right lower quadrant. No other focal findings. Initial assessment was high suspicion for lung cancer/breast cancer causing a right pleural effusion, atelectasis and possibly an obstructive pneumonia and also a left lung mass and mediastinal metastases. CONSULTATIONS: She was seen in consultation by Dr. Rosy Eller, her notes are part of the medical record. She noted the right pleural effusion, atelectasis, nodular opacities left lung and some dense consolidation of the right middle lobe and ground glass opacities in the right upper lobe. She was concerned about metastatic disease to the lung from breast cancer and she arranged a thoracocentesis. Consultation with Dr. Arturo Garbo, this is part of the electronic medical record. He noted the patient's prior history. He had been following her for an initial triple negative breast cancer on the right side. She had a lumpectomy, negative margins, sentinel lymph node biopsies were negative x2. This was treated with chemotherapy in May 2017 and was [id number] breast cancer. She also had radiotherapy completed in July 2017. spring, she had a fine-needle aspiration of the right breast suspicious for a second primary breast cancer. On 03/29/19, she had a lumpectomy, which was followed by more extensive excision. This was a 2.3 cm, [place] /, invasive ductal breast cancer, it was ER 1 to 2+ positive in 20 % of the cells and it was [place] and HER2/nancy negative. His impression was that this is metastatic adenoma, which could either be from breast or new lung primary. He reviewed the pathology and cytology showing clearly malignant adenocarcinoma cells; however, at this point, we do not know the origin. PROCEDURE: 1.6 L were drained of the right lung by Dr. Rosy Eller. She tolerated the procedure well and it was uncomplicated. INVESTIGATIONS: 11/28/19 CT scan of abdomen and pelvis. No CT findings to correlate with the right lower quadrant pain. No appendicitis. There is no sign of any problems with hydronephrosis on the right side or any other evidence of metastatic disease in the abdomen or pelvis. On 11/29/19 she had ultrasound of the chest again showing the large effusion. On 11/29/19, she had a breast ultrasound, showed a postoperative collection with interval retraction. No evidence of malignancy. Breast tomosynthesis diagnostic, no definite evidence of malignancy. LABORATORY INVESTIGATIONS: On the day of discharge, her white count was 5.1, hemoglobin 12.4, hematocrit 36, platelets 328, normal differential. Chemistry: Sodium 125, chloride 91, otherwise normal. INR at presentation was 1.04. HOSPITAL COURSE: Precious Sigala had right lower quadrant pain and dyspnea as her 2 main symptoms, but the dyspnea improved markedly with the thoracocentesis, which was uncomplicated. The right lower quadrant pain responded to opioids; however, given that the most likely cause is constipation , this is a paradoxical means of treatment as it will exacerbate the constipation. On the day of discharge, she is feeling much better. Her appetite has improved. Her pain is controlled. Her breathing is tolerable. She still feels a little weak and wobbly on her feet. PHYSICAL EXAMINATION ON THE DAY OF DISCHARGE: Temperature 98.2, pulse 95, respirations 18, oxygen saturation 97% on room air, blood pressure 126/80. She is warm, and well perfused. No cyanosis, anemia, jaundice, clubbing or adenopathy. Cardiovascular System: Pulse was regular. Heart sounds are normal. No added sounds or murmurs. No pedal edema. Respiratory System: Chest expansion was symmetrical. Percussion note was dull at the right base, but improved from presentation. She had decreased air entry at the right base, but much improved than the rest of the right lung. She had no further wheezes on the left side. Abdominal Examination: Very slight tenderness in the right quadrant, no rebound, guarding or rigidity. Bowel sounds are present. No organomegaly or masses. Nervous System: Alert and oriented x3 and conversational, insightful, and aware of her condition. Speech was normal. Cranial nerves II to XII intact. Arms and legs are full power, motor and coordination. Gait: She was confident walking with a walker, a little weak generally from having been in bed for a couple of days. ASSESSMENT AND PLAN: 1. 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 We need to know the definitive diagnosis as to whether this comes originally from breast cancer, lung cancer, or another source. This may be difficult to determine. Dr. Moore will follow up with her. He has stated depending upon the final cytology, there are a number of different therapeutic approaches. Also, there is the possibility of palliative care/hospice care should she choose this. She will follow up with Dr. Moore as an outpatient. 2. Right lower quadrant pain. The exact cause of his pain is still not determined, though most likely it is functional bowel issue. I am treating this empirically with both laxatives and analgesia as needed. 3. Hypertension. She was very anxious and hypertensive at presentation. This resolved after her thoracocentesis. 4. History of breast cancer. She usually follows with Dr. Moore. DISCHARGE MEDICATIONS: 1. Oxycodone 5 mg 1 to 2 tablets every 6 hours as needed. 2. Tramadol 50 mg 1 to 2 tablets every 6 hours as needed. Both of these I prescribed using my office electronic medical record and not the hospital system. 3. Ramipril 10 mg a day. 4. MiraLAX 17 g once or twice a day. 4. Metamucil 1 tablespoon twice a day as needed. 5. Stool softener as needed. 6. Milk of magnesia 30 mL as needed. 7. Ocuvite 1 a day. 8. Oxyquinoline-sodium lauryl sulfate 1 application vaginal as needed. [id number]/CPS #: [id number] MTDD
[2019-11-30 14:37] LABS: Fluid Type, Glucose PLEURAL
[2019-11-30 14:38] LABS: Lactate Dehydrogenase, BF 1834 U/L
[2019-11-30 14:50] LABS: Fluid Type, Protein, Total PLEURAL
== END 2019-11-30 12:30 | disposition home or self-care (01) | DRG 181 ==
LOC: MED 17:31 → OBSVTOIN 18:00 → MED 18:00
PROVIDERS: ADMIT Internal Medicine; ATTEND Internal Medicine
PROC: 0W993ZZ Drainage of Right Pleural Cavity, Percutaneous Approach (ICD-10-PCS; principal; 2019-11-29)
DX: C78.02 Secondary malignant neoplasm of left lung (principal); J91.0 Malignant pleural effusion; J98.11 Atelectasis; K59.00 Constipation, unspecified; R59.0 Localized enlarged lymph nodes; I10 Essential (primary) hypertension; Z96.652 Presence of left artificial knee joint; M81.0 Age-related osteoporosis without current pathological fracture; F34.1 Dysthymic disorder; E78.2 Mixed hyperlipidemia; N81.11 Cystocele, midline; M19.90 Unspecified osteoarthritis, unspecified site; H91.90 Unspecified hearing loss, unspecified ear; Z90.722 Acquired absence of ovaries, bilateral; Z87.891 Personal history of nicotine dependence; Z92.21 Personal history of antineoplastic chemotherapy; Z92.3 Personal history of irradiation; Z85.3 Personal history of malignant neoplasm of breast
CPT/HCPCS: 36415; 74176; 76604; 77061; 80048; 80053; 82945; 83615; 83986; 84157; 85025; 85610; 86140; 87040; 87070; 87205; 88112; 88305; 88341; 88342; 88360; 89051; 93005; A9270-GY; G0279; J1644; J2270

== ENCOUNTER 2020-01-30 10:55 | Inpatient (IN) | payer MEDICARE ==
[2020-01-30 11:09] LABS: ABS Basophils 0.1 10^3/ul (0-0.2); ABS Lymphocytes 0.6 10^3/ul (1.0-4.8); ABS Monocytes 0.6 10^3/ul (0-0.8); ABS Neutrophils 6.4 10^3/ul (1.5-7.7); Eosinophil % 0.6 %; Hematocrit 32 % (35-47); Hemoglobin 10.8 g/dL (12.0-16.0); Lymphocyte % 7.5 %; Mean Corpuscular HGB Conc 34 g/dL (31-36); Mean Corpuscular Hemoglobin 30 pg (27-31); Mean Corpuscular Volume 86 fL (80-97); Mean Platelet Volume 7.5 fL (7.4-10.4); Platelet Count 501 10^3/uL (150-450); Red Blood Count 3.67 10^6 /uL (3.70-4.87); Red Cell Distribution Width 15 % (10-15); White Blood Count 7.8 10^3/uL (3.5-10.8)
[2020-01-30 11:25] LABS: Albumin 2.7 g/dL (3.2-5.2); BUN/Creatinine Ratio 24.6 (8-20); EGFR African American 113.6 (>60); EGFR Non-African American 93.9 (>60); Globulin 2.8 g/dL (2-4); Potassium 4.7 mmol/L (3.5-5.0); Total Bilirubin 0.4 mg/dL (0.2-1.0); Total Protein 5.5 g/dL (6.4-8.9)
[2020-01-30] MEDS ORDERED: NS 0.9% 1000 ML** 1,000 ML IV SCH (12:15)
[2020-01-30] MEDS ORDERED: Ondansetron TAB* 4 MG PO PRN (13:17)
[2020-01-30] MEDS ORDERED: Ondansetron TAB* 4 MG ONE (13:18)
[2020-01-30] MEDS: Enoxaparin(*) 40 MG/0.4 ML SYR SUBCUT SCH (15:11)
[2020-01-30 16:05] LABS: Calcium 8.5 mg/dL (8.6-10.3)
[2020-01-30 16:07] LABS: Potassium 5.6 mmol/L (3.5-5.0)
[2020-01-30 16:08] LABS: Urine Appearance Cloudy; Urine Bilirubin 1+ (Negative); Urine Blood Negative (Negative); Urine Color Amber; Urine Glucose Negative (Negative); Urine Ketones Trace (Negative); Urine Nitrite Negative (Negative); Urine Protein Negative (Negative); Urine Specific Gravity 1.023 (1.010-1.030); Urine Urobilinogen Negative (Negative)
[2020-01-30 16:10] LABS: Urine Bacteria Absent (Absent); Urine Red Blood Cell Absent (Absent); Urine Renal Epithelial Cells Present (Absent); Urine Squamous Epithelial Cell Present (Absent); Urine White Blood Cell 3+(>20/hpf) (Absent)
[2020-01-30 16:11] LABS: BUN/Creatinine Ratio 24.2 (8-20); EGFR African American 111.5 (>60); EGFR Non-African American 92.2 (>60)
[2020-01-30] MEDS ORDERED: Gadoteridol* (CONTRAST) 279.3 MG/ML 10 ML IV ONE (16:11)
[2020-01-30] MEDS ORDERED: Acetaminophen TAB* 325 MG PO PRN (17:13)
[2020-01-30] MEDS ORDERED: Dexamethasone IV* 10 MG in NS 0.9% 50 ML* 50 ML IVPB ONE (17:30)
[2020-01-30] MEDS: Dronabinol CAP* 2.5 MG PO SCH (21:58)
[2020-01-31 05:32] LABS: ABS Lymphocytes 0.4 10^3/ul (1.0-4.8); ABS Monocytes 0.2 10^3/ul (0-0.8); ABS Neutrophils 5.3 10^3/ul (1.5-7.7); Eosinophil % 0.1 %; Hematocrit 29 % (35-47); Hemoglobin 9.9 g/dL (12.0-16.0); Lymphocyte % 7.3 %; Mean Corpuscular HGB Conc 34 g/dL (31-36); Mean Corpuscular Hemoglobin 29 pg (27-31); Mean Corpuscular Volume 86 fL (80-97); Mean Platelet Volume 7.8 fL (7.4-10.4); Platelet Count 455 10^3/uL (150-450); Red Cell Distribution Width 15 % (10-15); White Blood Count 5.9 10^3/uL (3.5-10.8)
[2020-01-31 05:48] LABS: Albumin 2.5 g/dL (3.2-5.2); BUN/Creatinine Ratio 23.2 (8-20); Calcium 8.6 mg/dL (8.6-10.3); EGFR African American 125.4 (>60); EGFR Non-African American 103.6 (>60); Globulin 2.5 g/dL (2-4); Total Bilirubin 0.3 mg/dL (0.2-1.0)
[2020-01-31] MEDS: Dronabinol CAP* 2.5 MG PO SCH ×2 (07:51→20:52)
[2020-01-31] MEDS: Dexamethasone TAB* 4 MG PO SCH ×3 (07:51→20:44)
[2020-01-31 10:06] LABS: TSH (Thyroid Stimulating Horm) 1.23 mcIU/mL (0.34-5.60)
--- NOTE | 2020-01-31 11:45 | PN ---
Progress Note - Progress Note Date of Service: 01/31/20 SOAP: Subjective: [Feels much better this morning. Still feels chest pressure on the R side with some dyspnea. Some intermittent visual changes, notices small red dots on white surfaces. No BOWER or focal weakness.] Objective: [ Vital Signs: Temp Pulse Resp BP Pulse Ox 96.5 F 103 18 156/77 95 01/31/20 07:15 01/31/20 07:15 01/31/20 11:15 01/31/20 07:15 01/31/20 07:15 Acetaminophen (Tylenol Tab*) 650 mg PO Q4H PRN PRN Reason: PAIN - MILD Albuterol (Ventolin 2.5 Mg/3 Ml Neb.Soo*) 2.5 mg INH Q4HR PRN PRN Reason: SOB/WHEEZING Dexamethasone (Decadron Tab*) 4 mg PO TID [facility] Last Admin: 01/31/20 07:51 Dose: 4 mg Docusate Sodium (Colace Cap*) 100 mg PO BID PRN PRN Reason: CONSTIPATION Dronabinol (Marinol Cap*) 2.5 mg PO BID [facility] Last Admin: 01/31/20 07:51 Dose: 2.5 mg Enoxaparin Sodium (Lovenox(*)) 40 mg SUBCUT Q24H [facility] Last Admin: 01/30/20 15:11 Dose: 40 mg Lorazepam (Ativan Tab(*)) 0.5 mg PO Q4H PRN PRN Reason: ANXIETY Morphine Sulfate (Morphine Oral Concentrate*) 5 mg SL Q2H PRN PRN Reason: moderate pain or dyspnea Ondansetron HCl (Zofran Tab*) 4 mg PO Q6H PRN PRN Reason: NAUSEA Polyethylene Glycol/Electrolytes (Miralax (17 Gm Dose Arben)) 17 gm PO BEDTIME PRN PRN Reason: CONSTIPATION Senna (Senokot 8.6 Mg Tab*) 1 tab PO BID PRN PRN Reason: CONSTIPATION Sodium Chloride (Sodium Chloride Tab*) 1 gm PO TID [facility] Laboratory Results - last 24 hr 01/30/20 01/30/20 01/30/20 11:00 15:16 15:45 WBC RBC Hgb Hct MCV MCH MCHC RDW Plt Count MPV Neut % (Auto) Lymph % (Auto) Branch % (Auto) Eos % (Auto) Baso % (Auto) Absolute Neuts (auto) Absolute Lymphs (auto) Absolute Monos (auto) Absolute Eos (auto) Absolute Basos (auto) Absolute Nucleated RBC Nucleated RBC % Sodium 121 L Potassium 5.6 H Chloride 89 L Carbon Dioxide 22 Anion Gap 10 BUN 15 Creatinine 0.62 Est GFR ( Amer) 111.5 Est GFR (Non-Af Amer) 92.2 BUN/Creatinine Ratio 24.2 H Glucose 115 H Serum Osmolality 254 L Calcium 8.5 L Total Bilirubin AST ALT Alkaline Phosphatase Total Protein Albumin Globulin Albumin/Globulin Ratio TSH Urine Color Eloise Urine Appearance Cloudy Urine pH 5.0 Ur Specific [place] 1.023 Urine Protein Negative Urine Ketones Trace A Urine Blood Negative Urine Nitrate Negative Urine Bilirubin 1+ A Urine Urobilinogen Negative Ur Leukocyte Esterase 3+ A Urine WBC (Auto) 3+(>20/hpf) A Urine RBC (Auto) Absent Ur Squamous Epith Cells Present A Ur Renal Epithelial Cell Present A Urine Bacteria Absent Hyaline Casts Present A Urine Glucose Negative Urine Ascorbic Acid * A 01/31/20 01/31/20 05:03 05:03 WBC 5.9 RBC 3.40 L Hgb 9.9 L Hct 29 L MCV 86 MCH 29 MCHC 34 RDW 15 Plt Count 455 H MPV 7.8 Neut % (Auto) 88.9 Lymph % (Auto) 7.3 Branch % (Auto) 3.1 Eos % (Auto) 0.1 Baso % (Auto) 0.6 Absolute Neuts (auto) 5.3 Absolute Lymphs (auto) 0.4 L Absolute Monos (auto) 0.2 Absolute Eos (auto) 0.0 Absolute Basos (auto) 0.0 Absolute Nucleated RBC 0.0 Nucleated RBC % 0.0 Sodium 121 L Potassium 5.0 Chloride 91 L Carbon Dioxide 22 Anion Gap 8 BUN 13 Creatinine 0.56 Est GFR ( Amer) 125.4 Est GFR (Non-Af Amer) 103.6 BUN/Creatinine Ratio 23.2 H Glucose 117 H Serum Osmolality Calcium 8.6 Total Bilirubin 0.30 AST 44 H ALT 18 Alkaline Phosphatase 74 Total Protein 5.0 L Albumin 2.5 L Globulin 2.5 Albumin/Globulin Ratio 1.0 TSH 1.23 Urine Color Urine Appearance Urine pH Ur Specific [place] Urine Protein Urine Ketones Urine Blood Urine Nitrate Urine Bilirubin Urine Urobilinogen Ur Leukocyte Esterase Urine WBC (Auto) Urine RBC (Auto) Ur Squamous Epith Cells Ur Renal Epithelial Cell Urine Bacteria Hyaline Casts Urine Glucose Urine Ascorbic Acid Exam: Gen: chronically ill, but much improved appearing from admission - in NAD and accompanied by her daughter HEENT: MMM CV: RRR, no m/r/g Resp: decreased breath sounds in the R lung Abd: soft and nonTTP Ext: no edema] Assessment: [This is an 84 yo female with 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 Brain MRI indicates multiple small metastases with surrounding vasogenic edema. Had an extended conversation with the patient and her daughter regarding treatment and prognosis. She does not want to continue any systemic treatment at this time and is considering gammaknife to new brain mets.] Plan: [1. 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 Brain mets - discussed treatment and prognosis in detail - cont dex 4 mg po tid - reviewed gammaknife v WBRT - pt is considering options but leaning towards no directed therapy 3. Pleural effusion - repeat thoracentesis to RUL collection today - cont to drain PleurX catheter q 48h or prn - manage dyspnea/chest pressure with morphine and ativan prn 4. 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
--- NOTE | 2020-01-31 13:04 | BRIEFOPN ---
Brief Operative/Procedure Note - Operation Details Pre-Op Diagnosis: loculated rt effusion Post-Op Diagnosis: Loculated rt effusion with thick pocket of dense fluid that could not be drained with 8Fr catheter Procedures: Thoracentesis with image guidance on rt Surgeon(s)/Proceduralists: Rafita Anesthesia: Local with 1% lidocaine 5% Estimated Blood Loss: None Findings: Dense fluid that couldnot be drained. Only trace amount of hemorrhagic fluid was aspirated Specimen(s)/Culture(s) Description: None Complications: None
[2020-01-31] MEDS: Sodium Chloride TAB* 1 GM PO SCH ×2 (13:31→20:44)
[2020-01-31] MEDS: Enoxaparin(*) 40 MG/0.4 ML SYR SUBCUT SCH (13:33)
[2020-01-31] MEDS: LORazepam TAB(*) 0.5 MG PO PRN (13:37)
--- NOTE | 2020-01-31 15:07 | CONSULT ---
Palliative / Hospice Consult Ordering Provider: Goran Abdalla - PCP-Law Referal Reason: Goals of care/colace, PEG, senna/MS - Subjective Code Status: DNR Advance Directives Location: In Chart MOLST Part A Completed: Yes - updated on chart MOLST Part E Completed:: Yes - updated on chart - History or Present Illness History or Present Illness: 84yo female with stage 4 breast cancer presents with SOB. PMH is significant for breast cancer diagnosed 01/2017 treated with chemo and radiation, recurrence 02/2019, malignant effusions 11/2019 now with catheter and HTN. PSHx ex tob user, ex drinker, lives on her own, daughter is her HCP(on chart). Studies Brain MRI-advanced chronic small vessel ischemic disease is likely, acute punctate lacunar infarct R frontal white matter, brain and CSF mets, Chest U/S complex R pleural effusion, H/H 9.9/29, plt 455, Na 121, BUN/Cr 13/.56 egfr 103.6 and alb 2.5. 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 All history is from pt family and medical record. Lab Values: Abnormal Lab Results 01/30/20 01/30/20 01/30/20 11:00 15:16 15:45 WBC RBC Hgb Hct MCV MCH MCHC RDW Plt Count MPV Neut % (Auto) Lymph % (Auto) [place] % (Auto) Eos % (Auto) Baso % (Auto) Absolute Neuts (auto) Absolute Lymphs (auto) Absolute Monos (auto) Absolute Eos (auto) Absolute Basos (auto) Absolute Nucleated RBC Nucleated RBC % Sodium 121 L Potassium 5.6 H Chloride 89 L Carbon Dioxide 22 Anion Gap 10 BUN 15 Creatinine 0.62 Est GFR ( Amer) 111.5 Est GFR (Non-Af Amer) 92.2 BUN/Creatinine Ratio 24.2 H Glucose 115 H Serum Osmolality 254 L Calcium 8.5 L Total Bilirubin AST ALT Alkaline Phosphatase Total Protein Albumin Globulin Albumin/Globulin Ratio TSH Urine Color Eloise Urine Appearance Cloudy Urine pH 5.0 Ur Specific [place] 1.023 Urine Protein Negative Urine Ketones Trace A Urine Blood Negative Urine Nitrate Negative Urine Bilirubin 1+ A Urine Urobilinogen Negative Ur Leukocyte Esterase 3+ A Urine WBC (Auto) 3+(>20/hpf) A Urine RBC (Auto) Absent Ur Squamous Epith Cells Present A Ur Renal Epithelial Cell Present A Urine Bacteria Absent Hyaline Casts Present A Urine Glucose Negative Urine Ascorbic Acid * A 01/31/20 01/31/20 05:03 05:03 WBC 5.9 RBC 3.40 L Hgb 9.9 L Hct 29 L MCV 86 MCH 29 MCHC 34 RDW 15 Plt Count 455 H MPV 7.8 Neut % (Auto) 88.9 Lymph % (Auto) 7.3 [place] % (Auto) 3.1 Eos % (Auto) 0.1 Baso % (Auto) 0.6 Absolute Neuts (auto) 5.3 Absolute Lymphs (auto) 0.4 L Absolute Monos (auto) 0.2 Absolute Eos (auto) 0.0 Absolute Basos (auto) 0.0 Absolute Nucleated RBC 0.0 Nucleated RBC % 0.0 Sodium 121 L Potassium 5.0 Chloride 91 L Carbon Dioxide 22 Anion Gap 8 BUN 13 Creatinine 0.56 Est GFR ( Amer) 125.4 Est GFR (Non-Af Amer) 103.6 BUN/Creatinine Ratio 23.2 H Glucose 117 H Serum Osmolality Calcium 8.6 Total Bilirubin 0.30 AST 44 H ALT 18 Alkaline Phosphatase 74 Total Protein 5.0 L Albumin 2.5 L Globulin 2.5 Albumin/Globulin Ratio 1.0 TSH 1.23 Urine Color Urine Appearance Urine pH Ur Specific [place] Urine Protein Urine Ketones Urine Blood Urine Nitrate Urine Bilirubin Urine Urobilinogen Ur Leukocyte Esterase Urine WBC (Auto) Urine RBC (Auto) Ur Squamous Epith Cells Ur Renal Epithelial Cell Urine Bacteria Hyaline Casts Urine Glucose Urine Ascorbic Acid Laboratory Last Values WBC 5.9 10^3/uL (3.5-10.8) 01/31/20 05:03 RBC 3.40 10^6 /uL (3.70-4.87) L 01/31/20 05:03 Hgb 9.9 g/dL (12.0-16.0) L 01/31/20 05:03 Hct 29 % (35-47) L 01/31/20 05:03 MCV 86 fL (80-97) 01/31/20 05:03 MCH 29 pg (27-31) 01/31/20 05:03 MCHC 34 g/dL (31-36) 01/31/20 05:03 RDW 15 % (10-15) 01/31/20 05:03 Plt Count 455 10^3/uL (150-450) H 01/31/20 05:03 MPV 7.8 fL (7.4-10.4) 01/31/20 05:03 Neut % (Auto) 88.9 % 01/31/20 05:03 Lymph % (Auto) 7.3 % 01/31/20 05:03 [place] % (Auto) 3.1 % 01/31/20 05:03 Eos % (Auto) 0.1 % 01/31/20 05:03 Baso % (Auto) 0.6 % 01/31/20 05:03 Absolute Neuts (auto) 5.3 10^3/ul (1.5-7.7) 01/31/20 05:03 Absolute Lymphs (auto) 0.4 10^3/ul (1.0-4.8) L 01/31/20 05:03 Absolute Monos (auto) 0.2 10^3/ul (0-0.8) 01/31/20 05:03 Absolute Eos (auto) 0.0 10^3/ul (0-0.6) 01/31/20 05:03 Absolute Basos (auto) 0.0 10^3/ul (0-0.2) 01/31/20 05:03 Absolute Nucleated RBC 0.0 10^3/ul 01/31/20 05:03 Nucleated RBC % 0.0 01/31/20 05:03 Sodium 121 mmol/L (135-145) L 01/31/20 05:03 Potassium 5.0 mmol/L (3.5-5.0) 01/31/20 05:03 Chloride 91 mmol/L (101-111) L 01/31/20 05:03 Carbon Dioxide 22 mmol/L (22-32) 01/31/20 05:03 Anion Gap 8 mmol/L (2-11) 01/31/20 05:03 BUN 13 mg/dL (6-24) 01/31/20 05:03 Creatinine 0.56 mg/dL (0.51-0.95) 01/31/20 05:03 Est GFR ( Amer) 125.4 (>60) 01/31/20 05:03 Est GFR (Non-Af Amer) 103.6 (>60) 01/31/20 05:03 BUN/Creatinine Ratio 23.2 (8-20) H 01/31/20 05:03 Glucose 117 mg/dL (70-100) H 01/31/20 05:03 Serum Osmolality 254 mOsm/kg (275-295) L 01/30/20 11:00 Calcium 8.6 mg/dL (8.6-10.3) 01/31/20 05:03 Total Bilirubin 0.30 mg/dL (0.2-1.0) 01/31/20 05:03 AST 44 U/L (13-39) H 01/31/20 05:03 ALT 18 U/L (7-52) 01/31/20 05:03 Alkaline Phosphatase 74 U/L (34-104) 01/31/20 05:03 Total Protein 5.0 g/dL (6.4-8.9) L 01/31/20 05:03 Albumin 2.5 g/dL (3.2-5.2) L 01/31/20 05:03 Globulin 2.5 g/dL (2-4) 01/31/20 05:03 Albumin/Globulin Ratio 1.0 (1-3) 01/31/20 05:03 TSH 1.23 mcIU/mL (0.34-5.60) 01/31/20 05:03 Urine Color Eloise 01/30/20 15:45 Urine Appearance Cloudy 01/30/20 15:45 Urine pH 5.0 (5-9) 01/30/20 15:45 Ur Specific [place] 1.023 (1.010-1.030) 01/30/20 15:45 Urine Protein Negative (Negative) 01/30/20 15:45 Urine Ketones Trace (Negative) A 01/30/20 15:45 Urine Blood Negative (Negative) 01/30/20 15:45 Urine Nitrate Negative (Negative) 01/30/20 15:45 Urine Bilirubin 1+ (Negative) A 01/30/20 15:45 Urine Urobilinogen Negative (Negative) 01/30/20 15:45 Ur Leukocyte Esterase 3+ (Negative) A 01/30/20 15:45 Urine WBC (Auto) 3+(>20/hpf) (Absent) A 01/30/20 15:45 Urine RBC (Auto) Absent (Absent) 01/30/20 15:45 Ur Squamous Epith Cells Present (Absent) A 01/30/20 15:45 Ur Renal Epithelial Cell Present (Absent) A 01/30/20 15:45 Urine Bacteria Absent (Absent) 01/30/20 15:45 Hyaline Casts Present (Absent) A 01/30/20 15:45 Urine Glucose Negative (Negative) 01/30/20 15:45 Urine Ascorbic Acid * (Negative) A 01/30/20 15:45 - Objective Active Medications: Acetaminophen (Tylenol Tab*) 650 mg PO Q4H PRN PRN Reason: PAIN - MILD Albuterol (Ventolin 2.5 Mg/3 Ml Neb.Soo*) 2.5 mg INH Q4HR PRN PRN Reason: SOB/WHEEZING Dexamethasone (Decadron Tab*) 4 mg PO TID [facility] Last Admin: 01/31/20 13:31 Dose: 4 mg Docusate Sodium (Colace Cap*) 100 mg PO BID PRN PRN Reason: CONSTIPATION Dronabinol (Marinol Cap*) 2.5 mg PO BID [facility] Last Admin: 01/31/20 07:51 Dose: 2.5 mg Enoxaparin Sodium (Lovenox(*)) 40 mg SUBCUT Q24H [facility] Last Admin: 01/31/20 13:33 Dose: 40 mg Lorazepam (Ativan Tab(*)) 0.5 mg PO Q4H PRN PRN Reason: ANXIETY Last Admin: 01/31/20 13:37 Dose: 0.5 mg Morphine Sulfate (Morphine Oral Concentrate*) 5 mg SL Q2H PRN PRN Reason: moderate pain or dyspnea Ondansetron HCl (Zofran Tab*) 4 mg PO Q6H PRN PRN Reason: NAUSEA Polyethylene Glycol/Electrolytes (Miralax (17 Gm Dose Arben)) 17 gm PO BEDTIME PRN PRN Reason: CONSTIPATION Senna (Senokot 8.6 Mg Tab*) 1 tab PO BID PRN PRN Reason: CONSTIPATION Sodium Chloride (Sodium Chloride Tab*) 1 gm PO TID [facility] Last Admin: 01/31/20 13:31 Dose: 1 gm Vital Signs: Vital Signs: Temp Pulse Resp BP Pulse Ox 96.5 F 103 18 156/77 95 01/31/20 07:15 01/31/20 07:15 01/31/20 13:37 01/31/20 07:15 01/31/20 07:15 Patient Weight: Weight 70.443 kg Intake and Output: Intake & Output 01/29/20 01/30/20 01/31/20 02/01/20 06:59 06:59 06:59 06:59 Intake Total 1245 240 Balance 1245 240 Weight 70.443 kg Intake: IV Fluids 885 NS (0.9%) 885 Oral 360 240 Other: Estimated Void Large # Bowel Movements 0 # Voids 1 ADLs: Meal Record Start: 01/30/20 12: 48 Freq: DAILY@0900,1400,1800 Status: Active Protocol: Created 01/30/20 12:48 System (Rec: 01/30/20 12:48 System [id number]) Document 01/30/20 14:00 [id number] (Rec: 01/30/20 15:25 [id number] MED-C09) Document 01/30/20 17:54 [id number] (Rec: 01/30/20 17:54 [id number] MED-C11) Document 01/31/20 09:00 [id number] (Rec: 01/31/20 10:17 [id number] MED-C11) Intake and Output Start: 01/30/20 12: 48 Freq: DAILY@0600,1400,2200 Status: Active Protocol: Created 01/30/20 12:48 System (Rec: 01/30/20 12:48 System [id number]) Document 01/30/20 14:00 [id number] (Rec: 01/30/20 15:26 [id number] MED-C09) Document 01/30/20 21:55 [id number] (Rec: 01/30/20 21:55 [id number] MED-C14) Document 01/31/20 06:00 [id number] (Rec: 01/31/20 06:04 [id number] MED-C09) Head: Normal Eyes: No Scleral Icterus Ears/Nose/Mouth/Throat: NL Teeth, Lips, Gums Neck: NL Appearance and Movements; NL JVP Cardiovascular: NL Sounds; No Murmurs; No JVD Respiratory: Symmetrical Chest Expansion and Respiratory Effort Abdominal: NL Sounds; No Tenderness; No Distention Extremities: No Edema Neurological: Alert and Oriented x 3 - Assessment Assessment: 84yo female with stage 4 breast cancer requesting hospice - Plan Consult Plan (MU): Hospice Plan: Long discussion with pt and daughter about goals of care. 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 Pt's sister offered to take her to a hospice residence in [facility] but pt wants to stay in [place] closer to friends. Pt understands prognosis, there is no cure she can have WBRT locally or gamma knife in [employer] , without radiation her prognosis is 1-2 months with radiation it is 2-4 months. Not interested in more treatment to extend her life since there is no cure and quality of life isn't good. She wants to focus on comfort she is feeling tired and knows she is dying. Hospice information/brochure given. MOLST completed to reflect DNR/DNI, no feeding tube, no trial of noninvasive ventilation, limited intervention. Copy of MOLST given to pt. Referral sent to [facility] for Residence or home hospice they don't need a bed but could use a commode. Pt is eligible for hospice with stage 4 breast cancer with brain mets. 50%, 50% - Time On Unit Date of Evaluation: 01/31/20 Hospice Consult Time in: 14:00 Hospice Consult Time Out: 15:00 Hospice Consult Time Total: 60 > 50% of Time Spend In Counseling or Coordinating Care: Yes
[2020-01-31] MEDS: Morphine ORAL CONCENTRATE* 5 MG/0.25 ML ORAL.SYRIN SL PRN ×2 (18:31→20:41)
--- NOTE | 2020-01-31 22:47 | PRO ---
THORACENTESIS REPORT: DATE OF PROCEDURE: 01/31/20 - ROOM #416 PROCEDURE PERFORMED: Ultrasound-guided thoracentesis. ANESTHESIA: Local anesthesia with 1% lidocaine. DESCRIPTION OF PROCEDURE: Informed consent was obtained from the patient prior to the procedure after all the risks and benefits were thoroughly explained. Portable ultrasound was utilized at bedside. The patient noted to have loculated thick dense fluid. Site was marked. Appropriate time-out was performed agreed on by attending staff. Aseptic precautions, barrier techniques were utilized. Area was disinfected with chlorhexidine. Local anesthesia achieved with 1% lidocaine intradermally, subcutaneously down into the pleural space taking precautions. A #11 scalpel blade was used to make stab incision. CareFusion 8-Colombian thoracentesis catheter was subsequently inserted under manual suction. Catheter was left in place and needle was removed. Trace amount of dark bloody appearing fluid was drained. Site was confirmed with ultrasound. Given density of fluid, not much fluid could have been suctioned.. Catheter was subsequently removed. The patient did not have any issues and was stable prior and after the procedure. The patient was discharged back to her room. [id number]/[facility] #: [id number] [facility]
[2020-02-01 04:41] LABS: Hematocrit 29 % (35-47); Hemoglobin 10.3 g/dL (12.0-16.0); Mean Corpuscular HGB Conc 35 g/dL (31-36); Mean Corpuscular Hemoglobin 30 pg (27-31); Mean Corpuscular Volume 85 fL (80-97); Mean Platelet Volume 7.7 fL (7.4-10.4); Platelet Count 506 10^3/uL (150-450); Red Blood Count 3.45 10^6 /uL (3.70-4.87); Red Cell Distribution Width 15 % (10-15); White Blood Count 8.2 10^3/uL (3.5-10.8)
[2020-02-01 04:53] LABS: Albumin 2.6 g/dL (3.2-5.2); BUN/Creatinine Ratio 27.9 (8-20); Calcium 8.6 mg/dL (8.6-10.3); EGFR African American 113.6 (>60); EGFR Non-African American 93.9 (>60); Globulin 2.7 g/dL (2-4); Potassium 4.7 mmol/L (3.5-5.0); Total Bilirubin 0.3 mg/dL (0.2-1.0); Total Protein 5.3 g/dL (6.4-8.9)
--- NOTE | 2020-02-01 09:04 | PN ---
Progress Note - Progress Note Date of Service: 02/01/20 SOAP: Subjective: Tells me she feels about the same Some dyspnea Denies pain Hg 10 and sodium a little better at 123 Labs c/w SIADH associated with malignancy Objective: Alert and conversant Nasal canula in place Decreased breath sounds on right Cardiac RRR Abdomen soft Neuro grossly nonfocal Vital Signs - 8 hr 02/01/20 03:15 Temperature 97.7 F Pulse Rate 98 Respiratory 20 Rate Blood Pressure 150/92 (mmHg) O2 Sat by Pulse 96 Oximetry Laboratory Results - last 24 hr 01/31/20 01/31/20 01/31/20 05:03 15:15 15:15 WBC RBC Hgb Hct MCV MCH MCHC RDW Plt Count MPV Sodium 121 L Potassium 5.0 Chloride 91 L Carbon Dioxide 22 Anion Gap 8 BUN 13 Creatinine 0.56 Est GFR ( Amer) 125.4 Est GFR (Non-Af Amer) 103.6 BUN/Creatinine Ratio 23.2 H Glucose 117 H Calcium 8.6 Total Bilirubin 0.30 AST 44 H ALT 18 Alkaline Phosphatase 74 Total Protein 5.0 L Albumin 2.5 L Globulin 2.5 Albumin/Globulin Ratio 1.0 TSH 1.23 Urine Osmolality 439 U Sodium Concentration 37 02/01/20 02/01/20 04:19 04:19 WBC 8.2 RBC 3.45 L Hgb 10.3 L Hct 29 L MCV 85 MCH 30 MCHC 35 RDW 15 Plt Count 506 H D MPV 7.7 Sodium 123 L Potassium 4.7 Chloride 91 L Carbon Dioxide 21 L Anion Gap 11 BUN 17 Creatinine 0.61 Est GFR ( Amer) 113.6 Est GFR (Non-Af Amer) 93.9 BUN/Creatinine Ratio 27.9 H Glucose 110 H Calcium 8.6 Total Bilirubin 0.30 AST 43 H ALT 19 Alkaline Phosphatase 82 Total Protein 5.3 L Albumin 2.6 L Globulin 2.7 Albumin/Globulin Ratio 1.0 TSH Urine Osmolality U Sodium Concentration Intake and Output Last 24 Hours 01/30/20 01/31/20 02/01/20 02/02/20 06:59 06:59 06:59 06:59 Intake Total 1245 440 Balance 1245 440 Weight 155 lb 4.8 oz Intake: IV Fluids 885 0 NS (0.9%) 885 0 Oral 360 440 Other: Estimated Void Large Medium # Bowel Movements 0 0 Estimated Stool Amount Small # Voids 1 1 1 Acetaminophen (Tylenol Tab*) 650 mg PO Q4H PRN PRN Reason: PAIN - MILD Albuterol (Ventolin 2.5 Mg/3 Ml Neb.Soo*) 2.5 mg INH Q4HR PRN PRN Reason: SOB/WHEEZING Dexamethasone (Decadron Tab*) 4 mg PO TID [facility]PL[facility] Last Admin: 01/31/20 20:44 Dose: 4 mg Docusate Sodium (Colace Cap*) 100 mg PO BID PRN PRN Reason: CONSTIPATION Dronabinol (Marinol Cap*) 2.5 mg PO BID REPLACED BY [facility] Last Admin: 01/31/20 20:52 Dose: Not Given Enoxaparin Sodium (Lovenox(*)) 40 mg SUBCUT Q24H REPLACED BY [facility] Last Admin: 01/31/20 13:33 Dose: 40 mg Lorazepam (Ativan Tab(*)) 0.5 mg PO Q4H PRN PRN Reason: ANXIETY Last Admin: 01/31/20 13:37 Dose: 0.5 mg Morphine Sulfate (Morphine Oral Concentrate*) 5 mg SL Q2H PRN PRN Reason: moderate pain or dyspnea Last Admin: 01/31/20 20:41 Dose: 5 mg Ondansetron HCl (Zofran Tab*) 4 mg PO Q6H PRN PRN Reason: NAUSEA Polyethylene Glycol/Electrolytes (Miralax (17 Gm Dose Arben)) 17 gm PO BEDTIME PRN PRN Reason: CONSTIPATION Senna (Senokot 8.6 Mg Tab*) 1 tab PO BID PRN PRN Reason: CONSTIPATION Sodium Chloride (Sodium Chloride Tab*) 1 gm PO TID REPLACED BY [facility] Last Admin: 01/31/20 20:44 Dose: 1 gm Assessment: Recurrent breast cancer with loculated right pleural effusion CONCRETE ANALYST metastases SIADH Plan: Reviewed in detail with patient Plans for Hospice care Continue liquid morphine, bronchodilators and supplemental O2 Sodium better on Na tablets and fluid restriction Home soon with hospice
[2020-02-01] MEDS: Dexamethasone TAB* 4 MG PO SCH ×3 (09:49→21:58)
[2020-02-01] MEDS: Sodium Chloride TAB* 1 GM PO SCH ×3 (09:49→21:57)
[2020-02-01] MEDS: Dronabinol CAP* 2.5 MG PO SCH ×2 (09:49→21:58)
[2020-02-01] MEDS: Morphine ORAL CONCENTRATE* 5 MG/0.25 ML ORAL.SYRIN SL PRN ×5 (09:49→21:58)
[2020-02-01] MEDS: Enoxaparin(*) 40 MG/0.4 ML SYR SUBCUT SCH (13:54)
[2020-02-02] MEDS: LORazepam TAB(*) 0.5 MG PO PRN ×2 (02:53→22:38)
[2020-02-02] MEDS: Morphine ORAL CONCENTRATE* 5 MG/0.25 ML ORAL.SYRIN SL PRN ×6 (02:53→22:38)
[2020-02-02 06:56] LABS: BUN/Creatinine Ratio 31.6 (8-20); Calcium 8.6 mg/dL (8.6-10.3); EGFR African American 122.9 (>60); EGFR Non-African American 101.5 (>60); Potassium 4.6 mmol/L (3.5-5.0)
[2020-02-02] MEDS: Sodium Chloride TAB* 1 GM PO SCH ×3 (08:05→20:36)
[2020-02-02] MEDS: Dronabinol CAP* 2.5 MG PO SCH ×2 (08:06→20:36)
[2020-02-02] MEDS: Dexamethasone TAB* 4 MG PO SCH ×3 (08:06→20:36)
--- NOTE | 2020-02-02 09:27 | PN ---
Progress Note - Progress Note Date of Service: 02/02/20 SOAP: Subjective: Notes a dry mouth Some dyspnea Edema right thigh Denies pain Sodium better at 129 Objective: Cardiac mild tachycardia Lungs decreased breath sounds right Abdomen soft Extrem w/o CCE Neuro nonfocal Some edema right thigh laterally Vital Signs - 8 hr 02/02/20 02/02/20 02/02/20 02:53 02:59 07:15 Temperature 97.5 F 97.6 F Pulse Rate 108 98 Respiratory 20 20 20 Rate Blood Pressure 152/91 142/80 (mmHg) O2 Sat by Pulse 97 97 Oximetry 02/02/20 02/02/20 02/02/20 08:00 08:06 08:07 Temperature Pulse Rate Respiratory 20 20 20 Rate Blood Pressure (mmHg) O2 Sat by Pulse Oximetry 02/02/20 08:08 Temperature Pulse Rate Respiratory 20 Rate Blood Pressure (mmHg) O2 Sat by Pulse Oximetry Laboratory Results - last 24 hr 02/02/20 05:55 Sodium 129 L Potassium 4.6 Chloride 96 L Carbon Dioxide 24 Anion Gap 9 BUN 18 Creatinine 0.57 Est GFR ( Amer) 122.9 Est GFR (Non-Af Amer) 101.5 BUN/Creatinine Ratio 31.6 H Glucose 97 Calcium 8.6 Intake and Output Last 24 Hours 01/31/20 02/01/20 02/02/20 02/03/20 06:59 06:59 06:59 06:59 Intake Total 1245 440 840 Balance 1245 440 840 Weight 155 lb 4.8 oz Intake: IV Fluids 885 0 NS (0.9%) 885 0 Oral 360 440 840 Other: Estimated Void Large Medium # Bowel Movements 0 0 0 Estimated Stool Amount Small # Voids 1 1 0 Acetaminophen (Tylenol Tab*) 650 mg PO Q4H PRN PRN Reason: PAIN - MILD Albuterol (Ventolin 2.5 Mg/3 Ml Neb.Soo*) 2.5 mg INH Q4HR PRN PRN Reason: SOB/WHEEZING Dexamethasone (Decadron Tab*) 4 mg PO TID [facility] Last Admin: 02/02/20 08:06 Dose: 4 mg Docusate Sodium (Colace Cap*) 100 mg PO BID PRN PRN Reason: CONSTIPATION Dronabinol (Marinol Cap*) 2.5 mg PO BID [facility] Last Admin: 02/02/20 08:06 Dose: 2.5 mg Enoxaparin Sodium (Lovenox(*)) 40 mg SUBCUT Q24H [facility] Last Admin: 02/01/20 13:54 Dose: 40 mg Lorazepam (Ativan Tab(*)) 0.5 mg PO Q4H PRN PRN Reason: ANXIETY Last Admin: 02/02/20 02:53 Dose: 0.5 mg Morphine Sulfate (Morphine Oral Concentrate*) 5 mg SL Q2H PRN PRN Reason: moderate pain or dyspnea Last Admin: 02/02/20 08:06 Dose: 5 mg Ondansetron HCl (Zofran Tab*) 4 mg PO Q6H PRN PRN Reason: NAUSEA Polyethylene Glycol/Electrolytes (Miralax (17 Gm Dose Arben)) 17 gm PO BEDTIME PRN PRN Reason: CONSTIPATION Senna (Senokot 8.6 Mg Tab*) 1 tab PO BID PRN PRN Reason: CONSTIPATION Sodium Chloride (Sodium Chloride Tab*) 1 gm PO TID [facility] Last Admin: 02/02/20 08:05 Dose: 1 gm Assessment: Metastatic breast cancer with malignant right pleural effusion and 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
[2020-02-02] MEDS: Enoxaparin(*) 40 MG/0.4 ML SYR SUBCUT SCH (13:15)
[2020-02-02] MEDS: Albuterol 2.5 MG/3 ML NEB.SOL* (0.083%) INH PRN (20:15)
[2020-02-02] MEDS: Polyethylene Glycol 3350* 17 GM PACKET PO PRN (22:50)
[2020-02-03] MEDS: Albuterol 2.5 MG/3 ML NEB.SOL* (0.083%) INH PRN (06:00)
[2020-02-03] MEDS: Sodium Chloride TAB* 1 GM PO SCH ×3 (09:28→19:59)
[2020-02-03] MEDS: Dexamethasone TAB* 4 MG PO SCH ×3 (09:28→19:59)
[2020-02-03] MEDS: Dronabinol CAP* 2.5 MG PO SCH ×2 (09:28→19:59)
[2020-02-03] MEDS: Polyethylene Glycol 3350* 17 GM PACKET PO PRN ×3 (09:55→19:59)
[2020-02-03] MEDS: Morphine ORAL CONCENTRATE* 5 MG/0.25 ML ORAL.SYRIN SL PRN ×3 (11:55→20:00)
--- NOTE | 2020-02-03 12:23 | PN ---
Progress Note - Progress Note Date of Service: 02/03/20 SOAP: Subjective: []Doesn't feel great. Still very SOB and makes it difficult to talk. Constipated and would like more miralax. Has abd. pain. Plan for hospice, either @ residence or at home. Her daughter who is a nurse is willing to care for her. Medications: Acetaminophen (Tylenol Tab*) 650 mg PO Q4H PRN PRN Reason: PAIN - MILD Albuterol (Ventolin 2.5 Mg/3 Ml Neb.Soo*) 2.5 mg INH Q4HR PRN PRN Reason: SOB/WHEEZING Last Admin: 02/03/20 06:00 Dose: 2.5 mg Dexamethasone (Decadron Tab*) 4 mg PO TID [facility] Last Admin: 02/03/20 09:28 Dose: 4 mg Docusate Sodium (Colace Cap*) 100 mg PO BID PRN PRN Reason: CONSTIPATION Dronabinol (Marinol Cap*) 2.5 mg PO BID [facility] Last Admin: 02/03/20 09:28 Dose: 2.5 mg Enoxaparin Sodium (Lovenox(*)) 40 mg SUBCUT Q24H [facility] Last Admin: 02/02/20 13:15 Dose: 40 mg Lorazepam (Ativan Tab(*)) 0.5 mg PO Q4H PRN PRN Reason: ANXIETY Last Admin: 02/02/20 22:38 Dose: 0.5 mg Morphine Sulfate (Morphine Oral Concentrate*) 5 mg SL Q2H PRN PRN Reason: moderate pain or dyspnea Last Admin: 02/03/20 11:55 Dose: 5 mg Ondansetron HCl (Zofran Tab*) 4 mg PO Q6H PRN PRN Reason: NAUSEA Polyethylene Glycol/Electrolytes (Miralax (17 Gm Dose Arben)) 17 gm PO BID PRN PRN Reason: CONSTIPATION Last Admin: 02/03/20 09:55 Dose: 17 gm Senna (Senokot 8.6 Mg Tab*) 1 tab PO BID PRN PRN Reason: CONSTIPATION Sodium Chloride (Sodium Chloride Tab*) 1 gm PO TID [facility] Last Admin: 02/03/20 09:28 Dose: 1 gm Objective: [] Vital Signs Temp Pulse Resp BP Pulse Ox 97.7 F 107 24 138/84 95 02/03/20 07:15 02/03/20 07:15 02/03/20 12:20 02/03/20 07:15 02/03/20 07:15 A&O, involved in care HRR JAVIER duncan. +BS, softly distended Assessment: []84 yo female with end stage breast cancer with plan to transition to hospice. Plan: - add additional dose of miralax - hospice, dispo pending coordination []
[2020-02-03] MEDS: LORazepam TAB(*) 0.5 MG PO PRN ×2 (13:12→18:02)
[2020-02-03] MEDS: Enoxaparin(*) 40 MG/0.4 ML SYR SUBCUT SCH (13:14)
[2020-02-03] MEDS: Docusate CAP* 100 MG PO PRN (18:01)
[2020-02-03] MEDS: Senna TAB 8.6 mg* TAB PO PRN (18:01)
[2020-02-04] MEDS: Albuterol 2.5 MG/3 ML NEB.SOL* (0.083%) INH PRN ×2 (03:44→07:37)
[2020-02-04] MEDS: LORazepam TAB(*) 0.5 MG PO PRN ×2 (04:23→09:04)
[2020-02-04] MEDS: Morphine ORAL CONCENTRATE* 5 MG/0.25 ML ORAL.SYRIN SL PRN ×6 (04:24→21:53)
[2020-02-04] MEDS: Polyethylene Glycol 3350* 17 GM PACKET PO PRN ×3 (09:02→22:10)
[2020-02-04] MEDS: Senna TAB 8.6 mg* TAB PO PRN ×2 (09:04→22:10)
[2020-02-04] MEDS: Dronabinol CAP* 2.5 MG PO SCH ×3 (09:04→22:19)
[2020-02-04] MEDS: Docusate CAP* 100 MG PO PRN ×2 (09:04→22:10)
[2020-02-04] MEDS: Sodium Chloride TAB* 1 GM PO SCH (09:04)
[2020-02-04] MEDS: Dexamethasone TAB* 4 MG PO SCH ×3 (09:04→21:53)
[2020-02-04] MEDS: Enoxaparin(*) 40 MG/0.4 ML SYR SUBCUT SCH (12:56)
[2020-02-04] MEDS: LORazepam TAB(*) 1 MG PO PRN ×3 (13:02→21:53)
[2020-02-04 13:52] VITALS: BP 123/73
[2020-02-05] MEDS: Morphine ORAL CONCENTRATE* 5 MG/0.25 ML ORAL.SYRIN SL PRN ×2 (02:04→06:11)
[2020-02-05] MEDS: LORazepam TAB(*) 1 MG PO PRN ×2 (02:05→06:12)
[2020-02-05] MEDS ORDERED: Scopolamine 1.5 mg* PATCH TRANSDERM SCH (02:44)
[2020-02-05] MEDS ORDERED: Scopolamine 1.5 mg* PATCH TRANSDERM PRN (04:00)
--- NOTE | 2020-02-05 12:10 | DS ---
- Discharge Summary Admission Date: 01/30/20 Discharge Date: 02/05/20 Discharge Diagnosis: 1. End stage breast cancer: transition to hospice 2. [employer] mets: cont. steroids for now 3. Malignant pleural effusion: breathing stable with current medications Discharge Medicaitons: Medication Instructions Recorded Confirmed Type Acetaminophen TAB* [Tylenol TAB*] 650 mg PO Q4H PRN tab 12/12/19 01/30/20 Rx Albuterol 2.5MG/3ML (0.083%)* 2.5 mg INH Q4HR PRN #1 neb.soln 12/12/19 01/30/20 Rx [Ventolin 2.5 MG/3 ML NEB.DEVIKA*] Docusate CAP* [Colace Cap*] 100 mg PO BID PRN cap 12/12/19 01/30/20 Rx Senna TAB 8.6 mg* [Senokot 8.6 mg 1 tab PO BID PRN tab 12/12/19 01/30/20 Rx TAB*] Dronabinol CAP* [Marinol CAP*] 2.5 mg PO BID 01/30/20 01/30/20 History Dexamethasone TAB* [Decadron TAB*] 4 mg PO TID #30 tab 02/04/20 Rx LORazepam TAB(*) [Ativan 1 MG TAB 1 mg PO Q4H PRN #30 tab MDD 6 tabs 02/04/20 Rx (*)] Morphine ORAL CONCENTRATE* 10 mg SL Q4H PRN #30 ml MDD 60 mg 02/04/20 Rx Ondansetron TAB* [Zofran 4 MG Tab*] 4 mg PO Q6H PRN #20 tab 02/04/20 Rx Polyethylene Glycol 3350* [Miralax 17 gm PO BID PRN #0 packet 02/04/20 01/30/20 Rx (17 GM DOSE YAMILETH)] Disposition: Hospice residence Condition: Stable Diet: as tolerated Activity: as tolerated, turn & position for comfort Hospital Course: Please see admission note for full H&P, however, briefly, Mrs. Sigala is well known to our service due to her unfortunate diagnosis of ER+ metastatic breast cancer, recurrent as of November this year. She was seen in the clinic on 01/29 following cycle 2 of weekly Paclitaxel. On presentation she complained of persistent shortness of breath and new dizziness. Labs revealed hyponatremia and she was admitted for further evaluation of her known pleural effusion (with PleurX in place), hydration, and MRI of the brain. Work-up unfortunately revealed new [employer] mets, a loculated effusion that was not able to be drained despite attempt by Dr. Eller (income tax preparer), and labs consistent with SIADH. She was started on steroids. The patient and her daughter had already discussed the possibility of pursuing hospice and Dr. Jensen of palliative care consulted on 01/31/20. Plan was made for discharge with hospice , however she was not certain she could manage at home and the residence was requested. On 02/04/20 she was transitioned to comfort measures and discharged via ambulance to the hospice residence on 02/05/20. She will continue to be followed by the oncology team with no follow-up appointments required.
[2020-02-08] MEDS ORDERED: Scopolamine PATCH Remove* 1 NOTE MISC PATCH OFF SCH (04:00)
== END 2020-02-05 08:35 | disposition hospice, inpatient (51) | DRG 643 ==
LOC: CHOA 10:55 → MED 12:42
PROVIDERS: ADMIT Internal Medicine Hematology & Oncology; ATTEND Internal Medicine Hematology & Oncology
PROC: 0W993ZZ Drainage of Right Pleural Cavity, Percutaneous Approach (ICD-10-PCS; principal; 2020-01-31)
DX: E22.2 Syndrome of inappropriate secretion of antidiuretic hormone (principal); G93.6 Cerebral edema; C79.40 Secondary malignant neoplasm of unspecified part of nervous system; J91.0 Malignant pleural effusion; C78.00 Secondary malignant neoplasm of unspecified lung; C50.919 Malignant neoplasm of unspecified site of unspecified female breast; K59.00 Constipation, unspecified; I10 Essential (primary) hypertension; Z66 Do not resuscitate; Z17.0 Estrogen receptor positive status [ER+]; Z79.899 Other long term (current) drug therapy; Z87.891 Personal history of nicotine dependence; Z80.6 Family history of leukemia
CPT/HCPCS: 36415; 70553; 76604; 80048; 80053; 81003; 81015; 83930; 83935; 84300; 84443; 85025; 85027; 87086; 93005; 94640; 99223; 99233; A9270-GY; A9579; J1100; J1650; J8540